=== PATIENT | female | born 1975 | race Caucasian/White ===

== ENCOUNTER 2020-05-15 15:18 | Inpatient (IN) | payer MEDICAID, OTHER ==
[~2020-05-15] VITALS: Ht 170.2 cm; Wt 124.7 kg
[~2020-05-15 15:18] MED LIST: BENZ100C PO; CLIN150C15 PO; FLUO60TA PO; FOLI0.4T5 PO; INSU100C4 SQ; INSU100I13 SQ; LISI-130 PO; MEDR150D3 IM; METF10007 PO; OXYC1TAB15 PO; PREG100C PO
[2020-05-15] MEDS ORDERED: cefTRIAXone IV Push 1 GM VIAL. IVP ONE (16:45)
--- NOTE | 2020-05-15 16:49 | PHYS DOC ---
Past Medical History Past Medical History: Asthma, Depression, Diabetes-Type II, Hypertension, Other Additional Past Medical Histor: NEUROPATHY Past Surgical History: , Other Additional Past Surgical Histo: ABSCESS REMOVALS, LEFT FOOT SURGERY W/ WOUND VAC Smoking Status: Former Smoker Alcohol Use: Rarely Additional Information: "I DRINK 3-4 TIMES A WEEK." Drug Use: None General Adult EDM: Chief Complaint: WOUND CHECK HPI: HPI: Patient is a 44 year old female with history of diabetes neuropathy anxiety depression presents emergency department for bilateral foot wounds. Patient was discharged from [facility] on Friday. She had I&D of the left foot wound at that time. Patient has had amputation of the second and third digit on the right foot in January. Plan was for IV of antibiotics at home. Patient has a PICC line in the left upper extremity. Patient reports they wanted her to go to rehab but she did not want ago. Patient reports they sent antibiotics to her house. She was unsure what to do with them. She did not go to wound care as instructed today. They were supposed to put a wound VAC on the wounds today. Patient denies fever chills nausea vomiting chest pain shortness of breath new numbness or weakness. Patient denies smoking drug use or alcohol use. Patient reports she is on Invanz 1 g every 24 hours as well as daptomycin. Review of Systems: Review of Systems: Review of Systems: Constitutional: Denies fever or chills Eyes: Denies redness or eye pain HENT: Denies nasal congestion or sore throat Respiratory: Denies cough or shortness of breath Cardiovascular: Denies chest pain or palpitations GI: denies abdominal pain and nausea, denies vomiting or diarrhea : Denies dysuria or hematuria Musculoskeletal: Denies back pain or joint pain Integument: Denies rash or skin lesions Neurologic: Denies headache, focal weakness or sensory changes Heart Score: C/O Chest Pain: No Allergies: Allergies: Allergies Coded Allergies Type Severity Reaction Last Updated Verified tioconazole Allergy Intermediate 04/19/15 No Physical Exam: PE: *GENERAL APPEARANCE: Awake and alert. Cooperative. No acute distress. Non toxic appearing. HEAD: Normocephalic. Atraumatic. EYES: EOM's grossly intact. Sclera anicteric. Conjunctiva clear ENT:. Airway patent. Mucous membranes moist. No trismus. Tolerating secretions. NECK: Supple. Trachea midline. HEART: Regular rate and rhythm. Radial pulses 2+. Good capillary refill. LUNGS: Respirations unlabored. Clear to auscultation bilaterally. No rales, rhonchi, wheezing or retractions. ABDOMEN: Soft. Non-tender. No guarding or rebound. No CVA tenderness. No palpable or pulsatile mass. EXTREMITIES: No acute deformities. No edema, erythema or calf tenderness. Left lower extremity: Large wound on the plantar aspect of the left foot that extends the lateral part of the foot. Mild erythema. No significant drainage. MTP amputation of the third fourth and fifth digit Right lower extremity: MTP amputation of the second and third digit. Wound over this area. Range of motion sensation normal in the bilateral lower extremities. No significant edema. Compartments are all soft. SKIN: Warm and dry. No rash. NEUROLOGICAL: Alert and oriented x3. No gross neurological deficits. Moves all 4 extremities spontaneously. PSYCHIATRIC: Normal mood. Current Patient Data: Vital Signs: Vital Signs Date Time Temp Pulse Resp B/P (MAP) Pulse Ox O2 Delivery O2 Flow Rate FiO2 05/15/20 15:30 98.4 101 24 190/82 (118) 98 Room Air 98.4 EKG: EKG: [] Radiology/Procedures: Radiology/Procedures: []PROCEDURE: FOOT BILAT 2V Left foot 2 views, right foot 2 views. HISTORY: Bilateral foot wounds Left foot 2 views were taken the left foot. There is evidence of amputations of portions of the first and second toes. There is no acute fracture or bony destructive process. There is soft tissue swelling. Right foot 2 views were taken of the right foot. There is been amputation of the second third toes. There is bony destruction of the distal second and third metatarsals. There is periosteal reaction which can be related to fracture or osteomyelitis with reaction. There is periosteal reaction along the first metatarsal as well. There is an old fracture at the head of the fourth metatarsal. Pattern is concerning for osteomyelitis is of the metatarsals. IMPRESSION: 1. Previous amputations left foot. 2. No acute fracture or bony destruction left foot. 3. Previous amputations right foot. 4. Periosteal reaction first, second and third metatarsals which can be seen with a chronic osteomyelitis, MRI may be of benefit. Electronically signed by: Wellington Gonzalez MD (05/15/2020 5:28 PM) [id number] DICTATED and SIGNED BY: WELLINGTON GONZALEZ MD DATE: 05/15/20 [id number] 0 Course & Med Decision Making: Course & Med Decision Making Medical decision making: This is a 44-year-old female presents emergency department for wounds on the bilateral feet. Patient just discharged from the hospital on Friday. She got sent home with antibiotics. She reports she has some at home but is not sure how to administer them. They offered her rehab but patient declined. Patient is very anxious. She now understands that she probably needs more help than she can give herself at home. She is willing to go to rehab facility for IV antibiotics. Patient follows with Dr. Casillas for infectious disease. She is on Invanz 1 g every 24 hours and daptomycin. Here in the emergency department patient appears anxious. Blood pressure is elevated. Mildly tachycardic. Afebrile. No leukocytosis. Hemoglobin 8.5. Electrolytes stable. CRP elevated. Patient given a dose of Invanz and daptomycin as she has not had any antibiotics since Friday. At this time based on patient's symptoms and findings will admit to the hospital for further observation and evaluation. Spoke with patient. Agreeable to admission. They are aware of all labs and imaging. All questions answered and patient stable at time of admission. Jennifer Disclaimer: Jennifer Disclaimer: This electronic medical record was generated, in whole or in part, using a voice recognition dictation system. I have spoken to the patient and/or caregivers. I have explained the patient's condition, diagnoses and treatment plan based on the information available to me at this time. I have answered the patient's and/or caregiver's questions and addressed my concerns. The patient and/or caregivers has a good understanding of the patient's diagnosis, condition and treatment plan as can be expected at this point. The patient has been stabilized within the capability of the emergency department. The patient will be transported for further care and management or will be moved to an observation or inpatient service. I have communicated with the staff or medical practitioner taking over this patient's care. Departure Departure Impression: Primary Impression: Wound of left foot Additional Impression: Wound of right foot Disposition: ADMITTED INPT THIS HOSP Admitting Physician: SETH (Spoke with Dr. MORIN AT 1830. Accepts admission. Will see patient. Agrees with plan. Patient stable at time of admission.) Condition: STABLE Referrals: NO PCP (PCP) PATTIE FULTON DO May 15, 2020 16:49
[2020-05-15 17:21] LABS: BASO # 0.1 x10^3/uL (0.0-0.2); BASO % 1 % (0-3); EOS % 0 % (0-3); HEMATOCRIT 26.2 % (36.0-47.0); HEMOGLOBIN 8.5 g/dL (12.0-15.5); LYMPH # 1.7 x10^3/uL (1.0-4.8); LYMPH % 20 % (24-48); MEAN CORPUSCULAR HEMOGLOBIN 27 pg (25-35); MEAN CORPUSCULAR HGB CONC 33 g/dL (31-37); MEAN CORPUSCULAR VOLUME 82 fL (79-100); MONO # 0.6 x10^3/uL (0.0-1.1); MONO % 7 % (0-9); NEUT # 6.1 x10^3/uL (1.8-7.7); NEUT % 71 % (31-73); PLATELET COUNT 512 x10^3/uL (140-400); RED BLOOD COUNT 3.21 x10^6/uL (3.50-5.40); RED CELL DISTRIBUTION WIDTH 18.4 % (11.5-14.5); WHITE BLOOD COUNT 8.6 x10^3/uL (4.0-11.0)
--- NOTE | 2020-05-15 17:30 | RAD ---
Left foot 2 views, right foot 2 views. HISTORY: Bilateral foot wounds Left foot 2 views were taken the left foot. There is evidence of amputations of portions of the first and secon d toes. There is no acute fracture or bony destructive process. There is soft tissue swelling. Right foot 2 views were taken of the right foot. There is been amputation of the second third toes. There is bon y destruction of the distal second and third metatarsals. There is periosteal reaction which can be r elated to fracture or osteomyelitis with reaction. There is periosteal reaction along the first metat arsal as well. There is an old fracture at the head of the fourth metatarsal. Pattern is concerning f or osteomyelitis is of the metatarsals. IMPRESSION: 1. Previous amputations left foot. 2. No acute fracture or bony destruction left foot. 3. Previous amputations right foot. 4. Periosteal reaction first, second and third metatarsals which can be seen with a chronic osteomyel itis, MRI may be of benefit. Electronically signed by: Wellington Gonzalez MD (05/15/2020 5:28 PM) [id number]
[2020-05-15 17:42] LABS: CALCIUM 8.3 mg/dL (8.5-10.1); CREATININE 0.9 mg/dL (0.6-1.0); POTASSIUM 3.8 mmol/L (3.5-5.1)
[2020-05-15] MEDS ORDERED: MORPHINE SULFATE 2 MG/ML VIAL. IV ONE (17:45)
[2020-05-15] MEDS ORDERED: MORPHINE SULFATE 4 MG/ML VIAL. ONE (17:46)
[2020-05-15 17:48] LABS: ALBUMIN 2.4 g/dL (3.4-5.0); ALBUMIN/GLOBULIN RATIO 0.5 (1.0-1.7); C-REACTIVE PROTEIN 12.1 mg/L (0-3.3); TOTAL BILIRUBIN 0.2 mg/dL (0.2-1.0); TOTAL PROTEIN 7.4 g/dL (6.4-8.2)
[2020-05-15] MEDS ORDERED: ERTAPENEM 1GM IVPB(GENERIC) NS 50 ML IV ONE (18:00)
[2020-05-15] MEDS ORDERED: ONDANSETRON PF 4 MG/2 ML VIAL. IV PRN (18:45)
[2020-05-15] MEDS ORDERED: DAPTOmycin (GENERIC) IVPB 530 MG in IV NORMAL SALINE 50ML 50 ML IV ONE (19:30)
[2020-05-15 19:55] VITALS: BP 155/72
[2020-05-15] MEDS: MORPHINE SULFATE 2 MG/ML VIAL. IV PRN (22:53)
[2020-05-15 23:00] VITALS: BP 162/87
[2020-05-15] MEDS: FLUoxetine HCL 20 MG CAPSULE PO SCH (23:56)
--- NOTE | 2020-05-16 02:16 | NUR ---
During pt assessment, pt stated that she has had thoughts of suicide. Pt stated that she has been going through a lot in life and suffers from major depression and Bipolar disorder. Pt states that she has a plan of how she would do it, but states that she has no immediate intent on carrying out the plan. I advised Dr. Teran who denied the need for a !:1 at this time. Contacted Day Nurse Ceramic Design Engineer and advised her what Parul said. This RN asked Day if staff should rotate out every 30 min, and she stated no since Parul saw no need. Will continue to monitor and provide ever 15 minute checks per suicide protocol. MPRN
[2020-05-16] MEDS: MORPHINE SULFATE 2 MG/ML VIAL. IV PRN ×4 (02:29→16:07)
[2020-05-16 03:00] VITALS: BP 141/90
[2020-05-16 07:00] VITALS: BP 126/81
[2020-05-16] MEDS: FLUoxetine HCL 20 MG CAPSULE PO SCH (07:49)
--- NOTE | 2020-05-16 07:53 | PDOC1 ---
History and Physical Date of Admission Date of Admission DATE: 05/16/20 TIME: 07:51 Identification/Chief Complaint Chief Complaint recently discharged from [facility] on daptomycin and Invanz and the patient comes in here she wants to go to rehab. History of Present Illness History of Present Illness 44 yr old female recently discharged from [facility] on daptomycin and Invanz and the patient comes in here that she says she just cannot do it at home and she wants to go to rehab. presented emergency department for bilateral foot wounds. discharged from [facility] on Friday. She had I&D of the left foot wound and amputation of the second and third digit on the right foot in January.2020 has a PICC line in the left upper extremity. reports they sent antibiotics to her house. She did not go to wound care as instructed They were supposed to put a wound VAC on the wounds Patient denies fever chills nausea vomiting chest pain shortness of breath new numbness or weakness. Patient denies smoking drug use or alcohol use Past Medical History Past Medical History Past Medical History Past Medical History: Asthma, Depression, Diabetes-Type II, Hypertension, Other Additional Past Medical Histor: NEUROPATHY Past Surgical History: , Other Additional Past Surgical Histo: ABSCESS REMOVALS, LEFT FOOT SURGERY W/ WOUND VAC Smoking Status: Former Smoker Alcohol Use: Rarely Additional Information: "I DRINK 3-4 TIMES A WEEK." Drug Use: None FHX OBESITY Psych: Anxiety, Bipolar, Depression Endocrine: Diabetes Family History Family History: Diabetes, High Cholestrol, Hypertension Social History Smoke: <1 pack per day ALCOHOL: none Drugs: None Current Problem List Problem List Problems Medical Problems: (1) Wound of left foot Status: Acute (2) Wound of right foot Status: Acute (3) Wound, open, foot Status: Acute Current Medications Current Medications Current Medications Ceftriaxone Sodium (Rocephin) 1 gm 1X ONCE IVP ; Start 05/15/20 at 16:45; Stop 05/15/20 at 17:50; Status DC Morphine Sulfate (Morphine Sulfate) 4 mg 1X ONCE IV Last administered on 05/15/20at 18:00; Start 05/15/20 at 17:45; Stop 05/15/20 at 17:46; Status DC Morphine Sulfate (Morphine Sulfate) 4 mg STK-MED ONCE .ROUTE ; Start 05/15/20 at 17:46; Stop 05/15/20 at 17:47; Status DC Ertapenem 50 ml @ 100 mls/hr 1X ONCE IV ; Start 05/15/20 at 18:00; Stop 05/15/20 at 18:29; Status DC Daptomycin 530 mg/ Sodium Chloride 50 ml @ 100 mls/hr 1X ONCE IV Last admini stered on 05/15/20at 19:41; Start 05/15/20 at 19:30; Stop 05/15/20 at 19:59; Status DC Ondansetron HCl (Zofran) 4 mg PRN Q8HRS PRN IV NAUSEA/VOMITING; Start 05/15/20 at 18:45; Stop 05/16/20 at 18:44 Morphine Sulfate (Morphine Sulfate) 2 mg PRN Q2HR PRN IV PAIN Last administered on 05/16/20at 07:49; Start 05/15/20 at 18:45; Stop 05/16/20 at 18:44 Lorazepam (Ativan Inj) 1 mg PRN Q4HRS PRN IVP ANXIETY / AGITATION Last administered on 05/16/20at 04:38; Start 05/15/20 at 23:15 Non-Formulary Medication (Fluoxetine Hcl ) 60 mg DAILY PO ; Start 05/16/20 at 09:00; Stop 05/15/20 at 23:17; Status DC Fluoxetine HCl (PROzac) 60 mg DAILY PO Last administered on 05/16/20at 07:49; Start 05/16/20 at 00:00 Pharmacy Consult (C.diff Med Screen By Rx) 1 each 1X ONCE [facility] ; Start 05/16/20 at 09:00; Stop 05/16/20 at 09:01 Active Scripts Active Tessalon Perle (Benzonatate) 100 Mg Capsule 1 Cap PO TID Clindamycin Hcl 150 Mg Capsule 3 Cap PO TID Lyrica (Pregabalin) 100 Mg Capsule 1 Cap PO BID Percocet 5-325 Mg Tablet (Oxycodone/Acetaminophen) 1 Each Tablet 1 Tab PO PRN Q6HRS PRN Reported Novolog (Insulin Aspart) 100 Unit/1 Ml Cartridge 100 Unit SQ TID Lantus Solostar (Insulin Glargine,Hum.rec.anlog) 100 Unit/1 Ml Insuln.pen 30 Unit SQ HS Metformin Hcl 1,000 Mg Tablet 1 Tab PO DAILY Folic Acid 0.4 Mg Tablet 0.4 Mg PO DAILY Fluoxetine Hcl 60 Mg Tablet 60 Mg PO DAILY Lisinopril 40 Mg Tablet 1 Tab PO DAILY Depo-Provera (Medroxyprogesterone Acetate) 150 Mg/1 Ml Disp.syrin 1 Ml IM Q4WK Allergies Allergies: Coded Allergies: bupropion (Verified Allergy, Severe, 05/15/20) Seizures tioconazole (Unverified Allergy, Intermediate, 04/19/15) ROS Review of System Review of Systems: Constitutional: Denies fever or chills Eyes: Denies redness or eye pain HENT: Denies nasal congestion or sore throat Respiratory: Denies cough or shortness of breath Cardiovascular: Denies chest pain or palpitations GI: denies abdominal pain and nausea, denies vomiting or diarrhea : Denies dysuria or hematuria Musculoskeletal: Denies back pain pos joint pain Integument: Denies rash or skin lesions Neurologic: Denies headache, focal weakness or sensory changes 14 pt ros otherwise neg General: No: Chills, Night Sweats, Fatigue, Malaise, Appetite, Other ALLERGY AND IMMUNOLOGY: No: Hives, Insect Bite Sensitivity, Itchy/Watery Eyes, Nasal Congestion, Post Nasal Drip, Seasonal Allergies, Other Hematological and Lymphatic: No: Bleeding Problems, Blood Clots, Blood Transfusions, Brusing, Night Sweats, Pallor, Swollen Lymph Nodes, Other Respiratory: No: Cough, Hemoptysis, Orthopnea, Pleuritic Pain, Shortness of breath, SOB with excertion, Sputum Changes, Stridor, Tachypnea, Wheezing, Other Cardiovascular: No Chest Pain, No Palpitations, No Orthopnea, No Paroxysmal Noc. Dyspnea, No Edema, No Lt Headedness, No Other Musculoskeletal: Yes Gait Disturbance, Yes Joint Stiffness Neurological: Yes Gait Disturbance Skin: Yes Skin Lesion Changes Physical Exam Physical Exam HEAD: Normocephalic. Atraumatic. EYES: EOM's grossly intact. Sclera anicteric. Conjunctiva clear ENT:. Airway patent. Mucous membranes moist. No trismus. Tolerating secretions. NECK: Supple. Trachea midline. HEART: Regular rate and rhythm. Radial pulses 2+. Good capillary refill. LUNGS: Respirations unlabored. Clear to auscultation bilaterally. No rales, rhonchi, wheezing or retractions. ABDOMEN: Soft. Non-tender. No guarding or rebound. No CVA tenderness. No palpable or pulsatile mass. EXTREMITIES: No acute deformities. No edema, erythema or calf tenderness. Left lower extremity: Large wound on the plantar aspect of the left foot that e xtends the lateral part of the foot. Mild erythema. No significant drainage. MTP amputation of the third fourth and fifth digit Right lower extremity: MTP amputation of the second and third digit. Wound over this area. Range of motion sensation normal in the bilateral lower extremities. No significant edema. Compartments are all soft. SKIN: Warm and dry. No rash. NEUROLOGICAL: Alert and oriented x3. No gross neurological deficits. Moves all 4 extremities PSYCHIATRIC: Normal mood. General: Alert, Oriented X3, Cooperative, No acute distress HEENT: Atraumatic, PERRLA, EOMI, Mucous membr. moist/pink Lungs: Clear to auscultation, Normal air movement Heart: S1S2, RRR, no thrills Breasts: Not examined Abdomen: Normal bowel sounds, Soft, No tenderness Rectal Exam: not examined PELVIC: Examination not indicated Extremities: No clubbing, No cyanosis Neuro: Normal speech, Cranial nerves 3-12 NL Psych/Mental Status: Mental status NL, Mood NL Vitals Vitals Vital Signs Date Time Temp Pulse Resp B/P (MAP) Pulse Ox O2 Delivery O2 Flow Rate FiO2 05/16/20 07:49 Room Air 05/16/20 03:00 98.4 100 18 141/90 (107) 98 98.4 Labs Labs Laboratory Tests Test 05/15/20 17:08 05/15/20 21:00 05/16/20 07:03 White Blood Count 8.6 x10^3/uL (4.0-11.0) Red Blood Count 3.21 x10^6/uL (3.50-5.40) Hemoglobin 8.5 g/dL (12.0-15.5) Hematocrit 26.2 % (36.0-47.0) Mean Corpuscular Volume 82 fL (79-100) Mean Corpuscular Hemoglobin 27 pg (25-35) Mean Corpuscular Hemoglobin Concent 33 g/dL (31-37) Red Cell Distribution Width 18.4 % (11.5-14.5) Platelet Count 512 x10^3/uL (140-400) Neutrophils (%) (Auto) 71 % (31-73) Lymphocytes (%) (Auto) 20 % (24-48) Monocytes (%) (Auto) 7 % (0-9) Eosinophils (%) (Auto) 0 % (0-3) Basophils (%) (Auto) 1 % (0-3) Neutrophils # (Auto) 6.1 x10^3/uL (1.8-7.7) Lymphocytes # (Auto) 1.7 x10^3/uL (1.0-4.8) Monocytes # (Auto) 0.6 x10^3/uL (0.0-1.1) Eosinophils # (Auto) 0.0 x10^3/uL (0.0-0.7) Basophils # (Auto) 0.1 x10^3/uL (0.0-0.2) Sodium Level 138 mmol/L (136-145) Potassium Level 3.8 mmol/L (3.5-5.1) Chloride Level 102 mmol/L (98-107) Carbon Dioxide Level 25 mmol/L (21-32) Anion Gap 11 (6-14) Blood Urea Nitrogen 5 mg/dL (7-20) Creatinine 0.9 mg/dL (0.6-1.0) Estimated GFR (Cockcroft-Gault) 68.0 BUN/Creatinine Ratio 6 (6-20) Glucose Level 166 mg/dL (70-99) Calcium Level 8.3 mg/dL (8.5-10.1) Total Bilirubin 0.2 mg/dL (0.2-1.0) Aspartate Amino Transf (AST/SGOT) 26 U/L (15-37) Alanine Aminotransferase (ALT/SGPT) 24 U/L (14-59) Alkaline Phosphatase 108 U/L (46-116) C-Reactive Protein, Quantitative 12.1 mg/L (0-3.3) Total Protein 7.4 g/dL (6.4-8.2) Albumin 2.4 g/dL (3.4-5.0) Albumin/Globulin Ratio 0.5 (1.0-1.7) Glucose (Fingerstick) 169 mg/dL (70-99) 148 mg/dL (70-99) Laboratory Tests Test 05/15/20 17:08 05/15/20 21:00 3/9/21 07:03 White Blood Count 8.6 x10^3/uL (4.0-11.0) Red Blood Count 3.21 x10^6/uL (3.50-5.40) Hemoglobin 8.5 g/dL (12.0-15.5) Hematocrit 26.2 % (36.0-47.0) Mean Corpuscular Volume 82 fL (79-100) Mean Corpuscular Hemoglobin 27 pg (25-35) Mean Corpuscular Hemoglobin Concent 33 g/dL (31-37) Red Cell Distribution Width 18.4 % (11.5-14.5) Platelet Count 512 x10^3/uL (140-400) Neutrophils (%) (Auto) 71 % (31-73) Lymphocytes (%) (Auto) 20 % (24-48) Monocytes (%) (Auto) 7 % (0-9) Eosinophils (%) (Auto) 0 % (0-3) Basophils (%) (Auto) 1 % (0-3) Neutrophils # (Auto) 6.1 x10^3/uL (1.8-7.7) Lymphocytes # (Auto) 1.7 x10^3/uL (1.0-4.8) Monocytes # (Auto) 0.6 x10^3/uL (0.0-1.1) Eosinophils # (Auto) 0.0 x10^3/uL (0.0-0.7) Basophils # (Auto) 0.1 x10^3/uL (0.0-0.2) Sodium Level 138 mmol/L (136-145) Potassium Level 3.8 mmol/L (3.5-5.1) Chloride Level 102 mmol/L (98-107) Carbon Dioxide Level 25 mmol/L (21-32) Anion Gap 11 (6-14) Blood Urea Nitrogen 5 mg/dL (7-20) Creatinine 0.9 mg/dL (0.6-1.0) Estimated GFR (Cockcroft-Gault) 68.0 BUN/Creatinine Ratio 6 (6-20) Glucose Level 166 mg/dL (70-99) Calcium Level 8.3 mg/dL (8.5-10.1) Total Bilirubin 0.2 mg/dL (0.2-1.0) Aspartate Amino Transf (AST/SGOT) 26 U/L (15-37) Alanine Aminotransferase (ALT/SGPT) 24 U/L (14-59) Alkaline Phosphatase 108 U/L (46-116) C-Reactive Protein, Quantitative 12.1 mg/L (0-3.3) Total Protein 7.4 g/dL (6.4-8.2) Albumin 2.4 g/dL (3.4-5.0) Albumin/Globulin Ratio 0.5 (1.0-1.7) Glucose (Fingerstick) 169 mg/dL (70-99) 148 mg/dL (70-99) Images Images Left foot 2 views, right foot 2 views. HISTORY: Bilateral foot wounds Left foot 2 views were taken the left foot. There is evidence of amputations of portions of the first and second toes. There is no acute fracture or bony destructive process. There is soft tissue swelling. Right foot 2 views were taken of the right foot. There is been amputation of the second third toes. There is bony destruction of the distal second and third metatarsals. There is periosteal reaction which can be related to fracture or osteomyelitis with reaction. There is periosteal reaction along the first metatarsal as well. There is an old fracture at the head of the fourth metatarsal. Pattern is concerning for osteomyelitis is of the metatarsals. IMPRESSION: 1. Previous amputations left foot. 2. No acute fracture or bony destruction left foot. 3. Previous amputations right foot. 4. Periosteal reaction first, second and third metatarsals which can be seen with a chronic osteomyelitis, MRI may be of benefit. Electronically signed by: Josefa Iyer MD (05/15/2020 5:28 PM) [id number] DICTATED and SIGNED BY: JOSEFA IYER MD DATE: 05/15/20 [id number] VTE Prophylaxis Ordered VTE Prophylaxis Devices: No VTE Pharmacological Prophylaxi: Yes Assessment/Plan Assessment/Plan Impression: Wound of left foot MORBID OBESITY Wound of right foot asthma Diabetes hypertension FAILED OUT PATIENT TREATMENT ADMITTED id consult iv merem wound care needs wound vac rehab, snf placement D/W DR HUGGINS Justifications for Admission Other Justification ROBBI CISNEROS MD May 16, 2020 07:53
--- NOTE | 2020-05-16 08:38 | PDOC ---
Infectious Disease Note Vital Sign Vital Signs Vital Signs Date Time Temp Pulse Resp B/P (MAP) Pulse Ox O2 Delivery O2 Flow Rate FiO2 05/16/20 07:49 Room Air 05/16/20 07:00 98.6 105 18 126/81 (96) 99 98.6 Labs Lab Laboratory Tests Test 05/15/20 17:08 05/15/20 21:00 05/16/20 07:03 White Blood Count 8.6 x10^3/uL (4.0-11.0) Red Blood Count 3.21 x10^6/uL (3.50-5.40) Hemoglobin 8.5 g/dL (12.0-15.5) Hematocrit 26.2 % (36.0-47.0) Mean Corpuscular Volume 82 fL (79-100) Mean Corpuscular Hemoglobin 27 pg (25-35) Mean Corpuscular Hemoglobin Concent 33 g/dL (31-37) Red Cell Distribution Width 18.4 % (11.5-14.5) Platelet Count 512 x10^3/uL (140-400) Neutrophils (%) (Auto) 71 % (31-73) Lymphocytes (%) (Auto) 20 % (24-48) Monocytes (%) (Auto) 7 % (0-9) Eosinophils (%) (Auto) 0 % (0-3) Basophils (%) (Auto) 1 % (0-3) Neutrophils # (Auto) 6.1 x10^3/uL (1.8-7.7) Lymphocytes # (Auto) 1.7 x10^3/uL (1.0-4.8) Monocytes # (Auto) 0.6 x10^3/uL (0.0-1.1) Eosinophils # (Auto) 0.0 x10^3/uL (0.0-0.7) Basophils # (Auto) 0.1 x10^3/uL (0.0-0.2) Sodium Level 138 mmol/L (136-145) Potassium Level 3.8 mmol/L (3.5-5.1) Chloride Level 102 mmol/L (98-107) Carbon Dioxide Level 25 mmol/L (21-32) Anion Gap 11 (6-14) Blood Urea Nitrogen 5 mg/dL (7-20) Creatinine 0.9 mg/dL (0.6-1.0) Estimated GFR (Cockcroft-Gault) 68.0 BUN/Creatinine Ratio 6 (6-20) Glucose Level 166 mg/dL (70-99) Calcium Level 8.3 mg/dL (8.5-10.1) Total Bilirubin 0.2 mg/dL (0.2-1.0) Aspartate Amino Transf (AST/SGOT) 26 U/L (15-37) Alanine Aminotransferase (ALT/SGPT) 24 U/L (14-59) Alkaline Phosphatase 108 U/L (46-116) C-Reactive Protein, Quantitative 12.1 mg/L (0-3.3) Total Protein 7.4 g/dL (6.4-8.2) Albumin 2.4 g/dL (3.4-5.0) Albumin/Globulin Ratio 0.5 (1.0-1.7) Glucose (Fingerstick) 169 mg/dL (70-99) 148 mg/dL (70-99) Objective Assessment Patient seen consult dictated Plan Plan of Care / AMY HUGGINS MD May 16, 2020 08:38
[2020-05-16] MEDS ORDERED: FLUOXETINE HCL 60 MG PO SCH (09:00)
[2020-05-16] MEDS ORDERED: C.DIFF MED SCREEN BY RX. MC ONE (09:00)
--- NOTE | 2020-05-16 09:05 | CONS ---
DATE OF CONSULTATION: 05/16/2020 REQUESTING PHYSICIAN: Dr. Lezama. REASON FOR CONSULTATION: Diabetic foot infection. HISTORY OF PRESENT ILLNESS: This is a 44-year-old female who is very well known to us. The patient was recently discharged from [facility] on daptomycin and Invanz and the patient comes in here that she says she just cannot do it at home and she wants to go to rehab. The patient denies any fever. Denies any nausea, vomiting, diarrhea, chest pain, shortness of breath, abdominal pain, urinary symptoms or bowel symptoms. PAST MEDICAL HISTORY: Positive for diabetes mellitus with poor control, hypertension and asthma. The patient had left foot plantar ulcer, necrotic with abscess. The patient had recent I and D done by Vascular Surgery. There was no osteomyelitis per MRI. The patient has a right second toe amputation, that site is healing well. Has a PICC line. SOCIAL HISTORY: Negative for smoking, alcohol use or drug use. ALLERGIES: LISTED ALLERGIC TO BUPROPION AND TIOCONAZOLE . CURRENT MEDICATIONS: Reviewed. REVIEW OF SYSTEMS: As per HPI, all other systems reviewed are negative. PHYSICAL EXAMINATION: GENERAL: Alert, oriented female, not in distress. VITAL SIGNS: Stable, afebrile. HEENT: NAD. NECK: Supple, no JVP, no lymphadenopathy. LUNGS: Clear. HEART: S1, S2 regular. ABDOMEN: Benign. EXTREMITIES: No edema or cyanosis. SKIN: Unremarkable except necrotic wound on the left plantar surface with Charcot's deformity and the right foot has an amputation site wound, which is actually healing nicely. Rest of skin exam is unremarkable. Dorsalis pedis is palpable. NEUROLOGIC: The patient is alert, awake and appropriate. No focal neurologic deficit. PICC line site is unremarkable. LABORATORY DATA: White count is normal. BUN and creatinine is normal. Foot x-ray reviewed. IMPRESSION: 1. Left foot necrotic plantar ulcer with abscess, status post recent I and D at [facility]. At that time, MRI was negative for osteomyelitis. 2. Right toe amputation site wound, which is healing well. 3. Diabetes with poor control. 4. Diabetic neuropathy. 5. Charcot's disease in the foot. 6. History of asthma. RECOMMENDATIONS: Would use daptomycin and meropenem. The patient was supposed to be on daptomycin and Invanz at home. The patient actually can be discharged to [facility] a [facility] facility and can be discharged. She does not need another MRI and/or anything else other than she needs IV antibiotics and she needs to give time to see the patient was told by Vascular Surgery that she may end up needing a BKA on the left one, but she wants to try to save it, needs to be ready to discharge and have a wound care at the [facility]. Thank you very much, Dr. Lezama, for giving me the opportunity to participate in this patient's care. AMY HUGGINS MD DR: URIEL/poncho JOB#: [id number] / [id number]
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
[2020-05-16] MEDS: PREGABALIN 50 MG CAPSULE PO SCH ×2 (12:51→21:05)
[2020-05-16] MEDS: oxyCODONE/APAP 5/325 1 TAB TABLET PO PRN ×2 (12:51→20:09)
[2020-05-16] MEDS: LISINOPRIL 20 MG TABLET PO SCH (12:51)
[2020-05-16] MEDS: FOLIC ACID 1 MG TABLET. PO SCH (12:51)
[2020-05-16] MEDS ORDERED: BENZONATATE 100 MG CAPSULE. PO SCH (14:00)
[2020-05-16 15:00] VITALS: BP 151/88
--- NOTE | 2020-05-16 15:49 | PDOC2 ---
Chief Complaint: Chief Complaint: Bilateral diabetic foot ulcers Problems: (1) Wound of right foot (2) Wound of left foot (3) TYPE 2 DIABETES MELLITUS WITH FOOT ULCER Vital Signs: Vital Signs: Vital Signs Date Time Temp Pulse Resp B/P (MAP) Pulse Ox O2 Delivery O2 Flow Rate FiO2 05/15/20 15:30 98.4 101 24 190/82 (118) 98 Room Air 98.4 Vital Signs Date Time Temp Pulse Resp B/P (MAP) Pulse Ox O2 Delivery O2 Flow Rate FiO2 05/16/20 12:51 Room Air 05/16/20 12:51 104 150/70 05/16/20 07:00 98.6 18 99 98.6 Allergies: Allergies: Allergies Coded Allergies Type Severity Reaction Last Updated Verified bupropion Allergy Severe 05/15/20 Yes tioconazole Allergy Intermediate 04/19/15 No Medications: Home Meds Active Scripts Benzonatate (TESSALON PERLE) 100 Mg Capsule, 1 CAP PO TID, #30 CAP Prov:MUTRAMEZABARRY SAMPLE WASHER 04/23/16 Clindamycin Hcl (CLINDAMYCIN HCL) 150 Mg Capsule, 3 CAP PO TID, #90 CAP Prov:MUTRAMEZABARRY SAMPLE WASHER 04/23/16 Pregabalin (LYRICA) 100 Mg Capsule, 1 CAP PO BID, #60 CAP 2 Refills Prov:BARRY DENTON APRN 04/23/16 Oxycodone/Apap 5-325 (PERCOCET 5-325 MG TABLET ) 1 Each Tablet, 1 TAB PO PRN Q6HRS PRN for PAIN, #20 TAB 0 Refills Prov:ARMEN HERNANDEZ 10/02/15 Reported Medications Insulin Aspart (NOVOLOG) 100 Unit/1 Ml Cartridge, 100 UNIT SQ TID, EACH 04/19/15 Insulin Glargine,Hum.rec.anlog (LANTUS SOLOSTAR) 100 Unit/1 Ml Insuln.pen, 30 UNIT SQ HS, #15 ML 3 Refills 04/19/15 Metformin Hcl (METFORMIN HCL) 1,000 Mg Tablet, 1 TAB PO DAILY, #60 TAB 5 Refills 04/19/15 Folic Acid (FOLIC ACID) 0.4 Mg Tablet, 0.4 MG PO DAILY, TAB 04/19/15 Fluoxetine Hcl (FLUOXETINE HCL) 60 Mg Tablet, 60 MG PO DAILY, TAB 04/19/15 Lisinopril (LISINOPRIL) 40 Mg Tablet, 1 TAB PO DAILY, #30 TAB 5 Refills 04/19/15 Medroxyprogesterone Acetate (DEPO-PROVERA) 150 Mg/1 Ml Disp.syrin, 1 ML IM Q4WK, #1 SYR 4 Refills 04/19/15 Date of Onset 44 yo diabetic female admitted through ED with bilateral diabetic foot ulcers. She was recently discharged from [facility] after bilateral diabetic foot ulcer debridement. Her planned support system to continue independence at home fell through and she is unable to manage dressings and care of these wounds on her own. She has had poorly controlled diabetes since the age of 32. She has had several toe amputations on her feet. The latest was the second and third toe on the right foot in January 2020. Surgical Date January 2020 Surgical History Serial toe amputations PSH She is single and lives at home alone. She used to smoke up to 3 ci garettes/month. She is now no longer a smoker. She does not drink alcohol. Physical Exam - Wound #1 Wound Exam Location of Modifier: Right Body Site: Foot Associated Signs/Symptoms: Drainage Drainage Amount: Moderate Drainage Description: Serous Odor: None/Absent Surrounding Tissue Appearance: pink Wound Description: muscle Grade Kauffman: 2 Surgical Debridement #1 Start Time: He is in 2% topical lidocaine as an anesthetic I sharply debrided slough and necrotic subcutaneous tissue using a curette. There is no bleeding. Physical Exam - Wound #2 Wound Exam Location of Modifier: Left Body Site: Foot Drainage Amount: Minimal Drainage Description: Serous Odor: None/Absent Surrounding Tissue Appearance: pink Wound Description: muscle Grade Kauffman: 2 A/P Bilateral foot ulcers in a patient with a history of poor diabetic control and of toe amputations. She is at moderate to high risk of further limb loss. Aggressive wound management is appropriate to starting with negative pressure wound therapy with vera flow. She is without support at home to help her manage and dressed these wounds. I think it is appropriate to have rehab as her post discharge goals. Infectious disease is managing her antibiotics. She also has lab results consistent with protein malnutrition. I recommend a dietary consult. Thank you for inviting wound care to participate in this patient's care. Problems: (1) TYPE 2 DIABETES MELLITUS WITH FOOT ULCER (2) Wound of left foot (3) Wound of right foot (4) SEQUELAE OF PROTEIN-CALORIE MALNUTRITION HECTOR AUGUSTIN MD May 16, 2020 15:49
[2020-05-16] MEDS: MEROPENEM 500 MG in IV NORMAL SALINE 50ML 50 ML IV SCH ×2 (15:58→22:35)
--- NOTE | 2020-05-16 16:23 | NUR ---
Wound/Ostomy Care Wound Type/Assessment: Patient seen per wound care consult. see wound assessment. Pt has DFUs to left lateral foot and right 2nd/3rd toes which were amputated in January 2020 per patient. Pt has been at [facility] and is familiar with Dr. Casillas. Wounds cleansed, assessed, measured, and pictured. Dr. Pompa consulted and at bedside. Pt stated current treatment to these wounds has been wound vac therapy. Treatment Recommendations/Plan: Recommendations for wound vac to both left and right foot wounds. Dr. Pompa performed a surgical bedside debridement to the right foot with written and verbal consent. s/p debridement picture and measurements taken. skin prepped and vac placed to right foot wound and veraflo vac placed to left foot wound. A good seal maintained on both vacs. the left foot veraflo vac settings are 125mmHg intermittent with 10mL for dwell time of 5 minutes every 4 hours and the right foot vac is 125mmHg continuous. Education provided: Pt educated on dressing changes, vac therapy and PU prevention. Offloading surface/device: pt is able to self turn and to limit pressure to wounds as much as possible. Recommended Referrals/Tests: Pt is following up with us in the wound clinic after discharge. Discharge Recommendations for dressings: Continue current treatment plan. No other wounds noted. Wound care will follow up with patient on 05/19/20. Bed lowered and call light in reach.
[2020-05-16] MEDS: DAPTOmycin (GENERIC) IVPB 540 MG in IV NORMAL SALINE 50ML 50 ML IV SCH (16:45)
[2020-05-16 19:00] VITALS: BP 134/79
[2020-05-16] MEDS ORDERED: BENZONATATE 100 MG CAPSULE. PO PRN (20:00)
[2020-05-16] MEDS ORDERED: INSULIN GLARGINE SYRINGE. SQ SCH (21:00)
[2020-05-16] MEDS: LACTOBACILLUS RHAMNOSUS GG 1 CAPSULE. PO SCH (21:05)
[2020-05-16] MEDS: INSULIN GLARGINE SYRINGE. SQ SCH (21:06)
[2020-05-16 23:00] VITALS: BP 128/80
[2020-05-17 03:00] VITALS: BP 137/67
[2020-05-17] MEDS: oxyCODONE/APAP 5/325 1 TAB TABLET PO PRN ×4 (04:49→21:16)
[2020-05-17] MEDS: MEROPENEM 500 MG in IV NORMAL SALINE 50ML 50 ML IV SCH ×3 (06:09→20:46)
[2020-05-17 07:00] VITALS: BP 145/78
[2020-05-17] MEDS: LACTOBACILLUS RHAMNOSUS GG 1 CAPSULE. PO SCH ×2 (08:25→20:46)
[2020-05-17] MEDS: LISINOPRIL 20 MG TABLET PO SCH (08:26)
[2020-05-17] MEDS: FLUoxetine HCL 20 MG CAPSULE PO SCH (08:26)
[2020-05-17] MEDS: PREGABALIN 50 MG CAPSULE PO SCH ×2 (08:27→20:46)
[2020-05-17] MEDS: FOLIC ACID 1 MG TABLET. PO SCH (08:27)
[2020-05-17] MEDS: INSULIN LISPRO 300 UNITS/3 ML VIAL. SQ SCH ×3 (08:31→17:20)
--- NOTE | 2020-05-17 08:35 | PDOC ---
PROGRESS NOTES Date of Service: DATE: 05/17/20 TIME: 08:35 Chief Complaint Chief Complaint DICTATED and SIGNED BY: JOSEFA IYER MD DATE: 05/15/20 [id number] VTE Prophylaxis Ordered VTE Prophylaxis Devices: No VTE Pharmacological Prophylaxi: Yes Assessment/Plan Assessment/Plan Impression: Wound of left foot MORBID OBESITY Wound of right foot asthma Diabetes hypertension FAILED OUT PATIENT TREATMENT ADMITTED id consult iv georgim wound care needs wound vac rehab, snf placement D/W DR HUGGINS Justifications for Admission Justifications for Admission Other Justification History of Present Illness History of Present Illness Identification/Chief Complaint Chief Complaint recently discharged from [facility] on daptomycin and Invanz and the patient comes in here she wants to go to rehab. History of Present Illness History of Present Illness 44 yr old female recently discharged from [facility] on daptomycin and Invanz and the patient comes in here that she says she just cannot do it at home and she wants to go to rehab. presented emergency department for bilateral foot wounds. discharged from [facility] on Friday. She had I&D of the left foot wound and amputation of the second and third digit on the right foot in January.2020 has a PICC line in the left upper extremity. reports they sent antibiotics to her house. She did not go to wound care as instructed They were supposed to put a wound VAC on the wounds Patient denies fever chills nausea vomiting chest pain shortness of breath new numbness or weakness. Patient denies smoking drug use or alcohol use Past Medical History Past Medical History Past Medical History Past Medical History: Asthma, Depression, Diabetes-Type II, Hypertension, Other Additional Past Medical Histor: NEUROPATHY Past Surgical History: , Other Additional Past Surgical Histo: ABSCESS REMOVALS, LEFT FOOT SURGERY W/ WOUND VAC Smoking Status: Former Smoker Alcohol Use: Rarely Additional Information: "I DRINK 3-4 TIMES A WEEK." Drug Use: None FHX OBESITY Psych: Anxiety, Bipolar, Depression Endocrine: Diabetes Family History Family History: Diabetes, High Cholestrol, Hypertension Social History Smoke: <1 pack per day ALCOHOL: none Drugs: None Current Problem List Problem List Problems Medical Problems: (1) Wound of left foot Status: Acute (2) Wound of right foot Status: Acute (3) Wound, open, foot Status: Acute 3-10 NEEDS PLACEMENT D/W RN AND CASE MGT Vitals Vitals Vital Signs Date Time Temp Pulse Resp B/P (MAP) Pulse Ox O2 Delivery O2 Flow Rate FiO2 05/17/20 08:26 97 145/78 05/17/20 07:00 97.7 20 98 Room Air 97.7 Physical Exam Physical Exam LUNGS: Respirations unlabored. Clear to auscultation bilaterally. No rales, rhonchi, wheezing or retractions. ABDOMEN: Soft. Non-tender. No guarding or rebound. No CVA tenderness. No palpable or pulsatile mass. EXTREMITIES: No acute deformities. No edema, erythema or calf tenderness. Left lower extremity: Large wound on the plantar aspect of the left foot that extends the lateral part of the foot. Mild erythema. No significant drainage. MTP amputation of the third fourth and fifth digit Right lower extremity: MTP amputation of the second and third digit. Wound over this area. Range of motion sensation normal in the bilateral lower extremities. No signif icant edema. Compartments are all soft. SKIN: Warm and dry. No rash. NEUROLOGICAL: Alert and oriented x3. No gross neurological deficits. Moves all 4 extremities PSYCHIATRIC: Normal mood. General: Alert, Oriented X3, Cooperative, No acute distress HEENT: Atraumatic, PERRLA, EOMI, Mucous membr. moist/pink Lungs: Clear to auscultation, Normal air movement Heart: S1S2, RRR, no thrills Breasts: Not examined Abdomen: Normal bowel sounds, Soft, No tenderness Rectal Exam: not examined PELVIC: Examination not indicated Extremities: No clubbing, No cyanosis Neuro: Normal speech, Cranial nerves 3-12 NL Psych/Mental Status: Mental status NL, Mood NL General: Alert, Oriented X3, Cooperative, No acute distress Heart: Regular rate, No murmurs Abdomen: Normal bowel sounds, Soft, No tenderness Extremities: No clubbing, No cyanosis Labs LABS Laboratory Tests Test 05/16/20 16:38 05/16/20 20:31 05/17/20 07:05 Glucose (Fingerstick) 171 mg/dL (70-99) 164 mg/dL (70-99) 130 mg/dL (70-99) Assessment and Plan Assessmemt and Plan Problems Medical Problems: (1) TYPE 2 DIABETES MELLITUS WITH FOOT ULCER Status: Chronic (2) Wound of left foot Status: Acute (3) Wound of right foot Status: Acute Comment Review of Relevant I have reviewed the following items angela (where applicable) has been applied. Labs Laboratory Tests Test 05/15/20 17:08 05/15/20 21:00 05/16/20 07:03 05/16/20 16:38 White Blood Count 8.6 x10^3/uL (4.0-11.0) Red Blood Count 3.21 x10^6/uL (3.50-5.40) Hemoglobin 8.5 g/dL (12.0-15.5) Hematocrit 26.2 % (36.0-47.0) Mean Corpuscular Volume 82 fL (79-100) Mean Corpuscular Hemoglobin 27 pg (25-35) Mean Corpuscular Hemoglobin Concent 33 g/dL (31-37) Red Cell Distribution Width 18.4 % (11.5-14.5) Platelet Count 512 x10^3/uL (140-400) Neutrophils (%) (Auto) 71 % (31-73) Lymphocytes (%) (Auto) 20 % (24-48) Monocytes (%) (Auto) 7 % (0-9) Eosinophils (%) (Auto) 0 % (0-3) Basophils (%) (Auto) 1 % (0-3) Neutrophils # (Auto) 6.1 x10^3/uL (1.8-7.7) Lymphocytes # (Auto) 1.7 x10^3/uL (1.0-4.8) Monocytes # (Auto) 0.6 x10^3/uL (0.0-1.1) Eosinophils # (Auto) 0.0 x10^3/uL (0.0-0.7) Basophils # (Auto) 0.1 x10^3/uL (0.0-0.2) Sodium Level 138 mmol/L (136-145) Potassium Level 3.8 mmol/L (3.5-5.1) Chloride Level 102 mmol/L (98-107) Carbon Dioxide Level 25 mmol/L (21-32) Anion Gap 11 (6-14) Blood Urea Nitrogen 5 mg/dL (7-20) Creatinine 0.9 mg/dL (0.6-1.0) Estimated GFR (Cockcroft-Gault) 68.0 BUN/Creatinine Ratio 6 (6-20) Glucose Level 166 mg/dL (70-99) Calcium Level 8.3 mg/dL (8.5-10.1) Total Bilirubin 0.2 mg/dL (0.2-1.0) Aspartate Amino Transf (AST/SGOT) 26 U/L (15-37) Alanine Aminotransferase (ALT/SGPT) 24 U/L (14-59) Alkaline Phosphatase 108 U/L (46-116) C-Reactive Protein, Quantitative 12.1 mg/L (0-3.3) Total Protein 7.4 g/dL (6.4-8.2) Albumin 2.4 g/dL (3.4-5.0) Albumin/Globulin Ratio 0.5 (1.0-1.7) Glucose (Fingerstick) 169 mg/dL (70-99) 148 mg/dL (70-99) 171 mg/dL (70-99) Test 05/16/20 20:31 05/17/20 07:05 Glucose (Fingerstick) 164 mg/dL (70-99) 130 mg/dL (70-99) Laboratory Tests Test 05/16/20 16:38 05/16/20 20:31 05/17/20 07:05 Glucose (Fingerstick) 171 mg/dL (70-99) 164 mg/dL (70-99) 130 mg/dL (70-99) Medications Current Medications Ceftriaxone Sodium (Rocephin) 1 gm 1X ONCE IVP ; Start 05/15/20 at 16:45; Stop 05/15/20 at 17:50; Status DC Morphine Sulfate (Morphine Sulfate) 4 mg 1X ONCE IV Last administered on 05/15/20at 18:00; Start 05/15/20 at 17:45; Stop 05/15/20 at 17:46; Status DC Morphine Sulfate (Morphine Sulfate) 4 mg STK-MED ONCE .ROUTE ; Start 05/15/20 at 17:46; Stop 05/15/20 at 17:47; Status DC Ertapenem 50 ml @ 100 mls/hr 1X ONCE IV ; Start 05/15/20 at 18:00; Stop 05/15/20 at 18:29; Status DC Daptomycin 530 mg/ Sodium Chloride 50 ml @ 100 mls/hr 1X ONCE IV Last administered on 05/15/20at 19:41; Start 05/15/20 at 19:30; Stop 05/15/20 at 19:59; Status DC Ondansetron HCl (Zofran) 4 mg PRN Q8HRS PRN IV NAUSEA/VOMITING; Start 05/15/20 at 18:45; Stop 05/16/20 at 18:44; Status DC Morphine Sulfate (Morphine Sulfate) 2 mg PRN Q2HR PRN IV PAIN Last administered on 05/16/20at 16:07; Start 05/15/20 at 18:45; Stop 05/16/20 at 18:44; Status DC Lorazepam (Ativan Inj) 1 mg PRN Q4HRS PRN IVP ANXIETY / AGITATION Last administered on 05/16/20at 04:38; Start 05/15/20 at 23:15; Stop 05/16/20 at 19:57; Status DC Non-Formulary Medication (Fluoxetine Hcl ) 60 mg DAILY PO ; Start 05/16/20 at 09:00; Stop 05/15/20 at 23:17; Status DC Fluoxetine HCl (PROzac) 60 mg DAILY PO Last administered on 05/17/20at 08:26; Start 05/16/20 at 00:00 Pharmacy Consult (C.diff Med Screen By Rx) 1 each 1X ONCE MC Last administered on 05/16/20at 09:00; Start 05/16/20 at 09:00; Stop 05/16/20 at 09:01; Status DC Daptomycin 540 mg/ Sodium Chloride 50 ml @ 100 mls/hr Q24H IV Last administered on 05/16/20at 16:45; Start 05/16/20 at 15:00 Meropenem 500 mg/ Sodium Chloride 50 ml @ 100 mls/hr Q8HRS IV Last administered on 05/17/20at 06:09; Start 05/16/20 at 14:00 Lactobacillus Rhamnosus (Culturelle) 1 cap BID PO Last administered on 05/17/20at 08:25; Start 05/16/20 at 21:00 Benzonatate (Tessalon Perle) 100 mg TID PO ; Start 05/16/20 at 14:00; Stop 05/16/20 at 19:57; Status DC Lisinopril (Prinivil) 40 mg DAILY PO Last administered on 05/17/20at 08:26; S tart 05/16/20 at 12:00 Oxycodone/ Acetaminophen (Percocet 5/325) 1 tab PRN Q6HRS PRN PO PAIN Last administered on 05/17/20at 04:49; Start 05/16/20 at 11:15 Folic Acid (Folic Acid) 1 mg DAILY PO Last administered on 05/17/20at 08:27; Start 05/16/20 at 12:00 Insulin Glargine (Lantus Syringe) 30 unit QHS SQ ; Start 05/16/20 at 21:00; Stop 05/16/20 at 19:57; Status DC Metformin HCl (Glucophage) 1,000 mg DAILY PO ; Start 05/17/20 at 09:00; Stop 05/16/20 at 19:57; Status DC Pregabalin (Lyrica) 100 mg BID PO Last administered on 05/17/20at 08:27; Start 05/16/20 at 12:00 Benzonatate (Tessalon Perle) 100 mg PRN TID PRN PO COUGH; Start 05/16/20 at 20:00 Insulin Glargine (Lantus Syringe) 22 unit QHS SQ Last administered on 05/16/20at 21:06; Start 05/16/20 at 21:00 Insulin Human Lispro (HumaLOG) 5 units TIDWMEALS SQ Last administered on 05/17/20at 08:31; Start 05/17/20 at 08:00 Alprazolam (Xanax) 0.25 mg PRN Q8HRS PRN PO ANXIETY / AGITATION; Start 05/16/20 at 20:15 Active Scripts Active Tessalon Perle (Benzonatate) 100 Mg Capsule 1 Cap PO TID Clindamycin Hcl 150 Mg Capsule 3 Cap PO TID Lyrica (Pregabalin) 100 Mg Capsule 1 Cap PO BID Percocet 5-325 Mg Tablet (Oxycodone/Acetaminophen) 1 Each Tablet 1 Tab PO PRN Q6HRS PRN Reported Novolog (Insulin Aspart) 100 Unit/1 Ml Cartridge 100 Unit SQ TID Lantus Solostar (Insulin Glargine,Hum.rec.anlog) 100 Unit/1 Ml Insuln.pen 30 Unit SQ HS Metformin Hcl 1,000 Mg Tablet 1 Tab PO DAILY Folic Acid 0.4 Mg Tablet 0.4 Mg PO DAILY Fluoxetine Hcl 60 Mg Tablet 60 Mg PO DAILY Lisinopril 40 Mg Tablet 1 Tab PO DAILY Depo-Provera (Medroxyprogesterone Acetate) 150 Mg/1 Ml Disp.syrin 1 Ml IM Q4WK Vitals/I & O Vital Sign - Last 24 Hours 05/16/20 05/16/20 05/16/20 05/16/20 12:51 12:51 15:00 16:07 Temp 98.7 98.7 Pulse 104 96 Resp 18 B/P (MAP) 150/70 151/88 (109) Pulse Ox 99 O2 Delivery Room Air Room Air Room Air 05/16/20 05/16/20 05/16/20 05/16/20 16:43 16:43 19:00 20:09 Temp 99.2 99.2 Pulse 110 Resp 18 B/P (MAP) 134/79 (97) Pulse Ox 98 O2 Delivery Room Air Room Air Room Air Room Air 05/16/20 05/16/20 05/16/20 05/17/20 20:15 21:09 23:00 03:00 Temp 98.9 98.8 98.9 98.8 Pulse 91 96 Resp 18 18 18 B/P (MAP) 128/80 (96) 137/67 (90) Pulse Ox 98 98 99 O2 Delivery Room Air Room Air Room Air Room Air 05/17/20 05/17/20 05/17/20 05/17/20 04:49 05:49 07:00 08:26 Temp 97.7 97.7 Pulse 97 97 Resp 18 20 B/P (MAP) 145/78 (100) 145/78 Pulse Ox 99 98 O2 Delivery Room Air Room Air Room Air Intake and Output 05/16/20 05/16/20 05/17/20 15:00 23:00 07:00 Intake Total 320 ml 350 ml 250 ml Balance 320 ml 350 ml 250 ml Justicifation of Admission Dx: Justifications for Admission: Justification of Admission Dx: Yes Cellulitis: Cellulitis ROBBI CISNEROS MD May 17, 2020 08:35
[2020-05-17] MEDS ORDERED: metFORMIN 500 MG TABLET PO SCH (09:00)
--- NOTE | 2020-05-17 09:45 | PDOC ---
Infectious Disease Note Subjective Subjective Patient is feeling good ROS ROS No nausea vomiting diarrhea chest pain shortness of breath Vital Sign Vital Signs Vital Signs Date Time Temp Pulse Resp B/P (MAP) Pulse Ox O2 Delivery O2 Flow Rate FiO2 05/17/20 08:26 97 145/78 05/17/20 07:00 97.7 20 98 Room Air 97.7 Physical Exam PHYSICAL EXAM GENERAL: Alert, oriented female, not in distress. VITAL SIGNS: Stable, afebrile. HEENT: NAD. NECK: Supple, no JVP, no lymphadenopathy. LUNGS: Clear. HEART: S1, S2 regular. ABDOMEN: Benign. EXTREMITIES: No edema or cyanosis. SKIN: Unremarkable except necrotic wound on the left plantar surface with Charcot's deformity and the right foot has an amputation site wound, which is actually healing nicely. Rest of skin exam is unremarkable. Dorsalis pedis is palpable. NEUROLOGIC: The patient is alert, awake and appropriate. No focal neurologic deficit. PICC line site is unremarkable. Labs Lab Laboratory Tests Test 05/16/20 16:38 05/16/20 20:31 05/17/20 07:05 Glucose (Fingerstick) 171 mg/dL (70-99) 164 mg/dL (70-99) 130 mg/dL (70-99) Objective Assessment IMPRESSION: 1. Left foot necrotic plantar ulcer with abscess, status post recent I and D at [facility]. At that time, MRI was negative for osteomyelitis. 2. Right toe amputation site wound, which is healing well. 3. Diabetes with poor control. 4. Diabetic neuropathy. 5. Charcot's disease in the foot. 6. History of asthma. Plan Plan of Care Continue IV antibiotics placement is in the works AMY HUGGINS MD May 17, 2020 09:45
[2020-05-17 11:00] VITALS: BP 152/80
--- NOTE | 2020-05-17 11:44 | NUR ---
SW following. Discussed with RN, pt from home alone, room air, ada diet. Pt has woundvac to each foot and needing IV abx (dapto and Invanz q24). SW met with pt, she is stating she was unable to do the IV infusion at home because she was asleep through the training at [facility]. Pt reporting she struggles to get up the 19 steps to her apartment. Pt wanting to go to a SNF, SW explained how difficult this can be with Medicaid, and facilities preferring to not accept Medicaid SNF pts. Pt requested SW try [facility] as she has been there before. DANIEL had previously checked with Sean from [facility] if they can accept Medicaid SNF, Sean requested the referral stating sometimes they can. DANIEL discussed with pt, she doesn't really want to go to [facility], SW explained this very well could be her only option of facility, or she will have to return home. Pt agreed to the referral being sent because she "wants to get better." Pt wondered if [facility] would be able to take her, DANIEL discussed with Sean at [facility]. Choice of vendor form completed. COVID swab for placement obtained. DANIEL will continue to follow. Addendum: 05/17/20 at 1157 by BROOKE SANCHEZ Referral faxed to [facility], awaiting acceptance decision. [facility] do not take Medicaid for SNF. DANIEL will continue to follow.
[2020-05-17] MEDS: LOPERAMIDE 2 MG CAPSULE PO PRN ×3 (14:03→21:16)
[2020-05-17 15:00] VITALS: BP 145/95
[2020-05-17] MEDS: DAPTOmycin (GENERIC) IVPB 540 MG in IV NORMAL SALINE 50ML 50 ML IV SCH (16:35)
[2020-05-17 19:00] VITALS: BP 150/70
[2020-05-17] MEDS ORDERED: HYDROmorphone 2 MG/ML VIAL IVP PRN (20:15)
[2020-05-17] MEDS: INSULIN GLARGINE SYRINGE. SQ SCH (20:56)
[2020-05-17] MEDS: ZOLPIDEM 5 MG TABLET. PO PRN (21:16)
[2020-05-17 23:00] VITALS: BP 133/88
[2020-05-18] MEDS: oxyCODONE/APAP 5/325 1 TAB TABLET PO PRN ×5 (01:45→19:06)
[2020-05-18 03:00] VITALS: BP 136/76
[2020-05-18] MEDS: MEROPENEM 500 MG in IV NORMAL SALINE 50ML 50 ML IV SCH ×3 (05:49→21:25)
[2020-05-18 07:00] VITALS: BP 116/54
[2020-05-18] MEDS: LACTOBACILLUS RHAMNOSUS GG 1 CAPSULE. PO SCH ×2 (08:34→21:24)
[2020-05-18] MEDS: FLUoxetine HCL 20 MG CAPSULE PO SCH (08:34)
[2020-05-18] MEDS: PREGABALIN 50 MG CAPSULE PO SCH ×2 (08:34→21:25)
[2020-05-18] MEDS: FOLIC ACID 1 MG TABLET. PO SCH (08:35)
[2020-05-18] MEDS: LISINOPRIL 20 MG TABLET PO SCH (08:35)
--- NOTE | 2020-05-18 08:40 | PDOC ---
Infectious Disease Note Subjective Subjective Patient is feeling good Vital Sign Vital Signs Vital Signs Date Time Temp Pulse Resp B/P (MAP) Pulse Ox O2 Delivery O2 Flow Rate FiO2 05/18/20 07:02 Room Air 05/18/20 07:00 98.2 93 20 116/54 (74) 98 98.2 Physical Exam PHYSICAL EXAM GENERAL: Alert, oriented female, not in distress. VITAL SIGNS: Stable, afebrile. HEENT: NAD. NECK: Supple, no JVP, no lymphadenopathy. LUNGS: Clear. HEART: S1, S2 regular. ABDOMEN: Benign. EXTREMITIES: No edema or cyanosis. SKIN: Unremarkable except necrotic wound on the left plantar surface with Charcot's deformity and the right foot has an amputation site wound, which is actually healing nicely. Rest of skin exam is unremarkable. Dorsalis pedis is palpable. NEUROLOGIC: The patient is alert, awake and appropriate. No focal neurologic deficit. PICC line site is unremarkable. Labs Lab Laboratory Tests Test 05/17/20 10:32 05/17/20 16:41 05/17/20 20:28 05/18/20 07:52 Glucose (Fingerstick) 175 mg/dL (70-99) 142 mg/dL (70-99) 182 mg/dL (70-99) 125 mg/dL (70-99) Objective Assessment IMPRESSION: 1. Left foot necrotic plantar ulcer with abscess, status post recent I and D at [facility]. At that time, MRI was negative for osteomyelitis. 2. Right toe amputation site wound, which is healing well. 3. Diabetes with poor control. 4. Diabetic neuropathy. 5. Charcot's disease in the foot. 6. History of asthma. Plan Plan of Care Continue IV antibiotics placement is in the works AMY HUGGINS MD May 18, 2020 08:40
[2020-05-18] MEDS: INSULIN LISPRO 300 UNITS/3 ML VIAL. SQ SCH ×3 (08:42→17:20)
--- NOTE | 2020-05-18 10:13 | PDOC ---
PROGRESS NOTES Date of Service: DATE: 05/18/20 TIME: 10:13 Chief Complaint Chief Complaint DICTATED and SIGNED BY: JOSEFA IYER MD DATE: 05/15/20 [id number] 0 VTE Prophylaxis Ordered VTE Prophylaxis Devices: No VTE Pharmacological Prophylaxi: Yes Assessment/Plan Assessment/Plan Impression: Wound of left foot MORBID OBESITY Wound of right foot asthma Diabetes hypertension FAILED OUT PATIENT TREATMENT SEVERE PAIN ADMITTED id consult iv [facility] wound care needs wound vac rehab, snf placement D/W DR HUGGINS Justifications for Admission Justifications for Admission Other Justification History of Present Illness History of Present Illness Identification/Chief Complaint Chief Complaint recently discharged from [facility] on daptomycin and Invanz and the patient comes in here she wants to go to rehab. History of Present Illness History of Present Illness 44 yr old female recently discharged from [facility] on daptomycin and Invanz and the patient comes in here that she says she just cannot do it at home and she wants to go to rehab. presented emergency department for bilateral foot wounds. discharged from [facility] on Friday. She had I&D of the left foot wound and amputation of the second and third digit on the right foot in January.2020 has a PICC line in the left upper extremity. reports they sent antibiotics to her house. She did not go to wound care as instructed They were supposed to put a wound VAC on the wounds Patient denies fever chills nausea vomiting chest pain shortness of breath new numbness or weakness. Patient denies smoking drug use or alcohol use Past Medical History Past Medical History Past Medical History Past Medical History: Asthma, Depression, Diabetes-Type II, Hypertension, Other Additional Past Medical Histor: NEUROPATHY Past Surgical History: , Other Additional Past Surgical Histo: ABSCESS REMOVALS, LEFT FOOT SURGERY W/ WOUND VAC Smoking Status: Former Smoker Alcohol Use: Rarely Additional Information: "I DRINK 3-4 TIMES A WEEK." Drug Use: None FHX OBESITY Psych: Anxiety, Bipolar, Depression Endocrine: Diabetes Family History Family History: Diabetes, High Cholestrol, Hypertension Social History Smoke: <1 pack per day ALCOHOL: none Drugs: None Current Problem List Problem List Problems Medical Problems: (1) Wound of left foot Status: Acute (2) Wound of right foot Status: Acute (3) Wound, open, foot Status: Acute 3-10 NEEDS PLACEMENT D/W RN AND CASE MGT 3-11 REPORTS PAIN UNCONTROLLED WILL ADJUST D/W RN Vitals Vitals Vital Signs Date Time Temp Pulse Resp B/P (MAP) Pulse Ox O2 Delivery O2 Flow Rate FiO2 05/18/20 09:58 Room Air 05/18/20 08:35 93 116/54 05/18/20 07:00 98.2 20 98 98.2 Physical Exam Physical Exam GENERAL: Alert, oriented female, not in distress. VITAL SIGNS: Stable, afebrile. HEENT: NAD. NECK: Supple, no JVP, no lymphadenopathy. LUNGS: Clear. HEART: S1, S2 regular. ABDOMEN: Benign. EXTREMITIES: No edema or cyanosis. SKIN: Unremarkable except necrotic wound on the left plantar surface with Charcot's deformity and the right foot has an amputation site wound, which is actually healing nicely. Rest of skin exam is unremarkable. Dorsalis pedis is palpable. NEUROLOGIC: The patient is alert, awake and appropriate. No focal neurologic deficit. PICC line site is unremarkable. General: Alert, Oriented X3, Cooperative, No acute distress, mild distress Heart: Regular rate, Normal S1, Normal S2, No murmurs Abdomen: Normal bowel sounds, Soft, No tenderness Extremities: No clubbing, No cyanosis Labs LABS Laboratory Tests Test 05/17/20 10:32 05/17/20 16:41 05/17/20 20:28 05/18/20 07:52 Glucose (Fingerstick) 175 mg/dL (70-99) 142 mg/dL (70-99) 182 mg/dL (70-99) 125 mg/dL (70-99) Assessment and Plan Assessmemt and Plan Problems Medical Problems: (1) TYPE 2 DIABETES MELLITUS WITH FOOT ULCER Status: Chronic (2) Wound of left foot Status: Acute (3) Wound of right foot Status: Acute Comment Review of Relevant I have reviewed the following items angela (where applicable) has been applied. Labs Laboratory Tests Test 05/16/20 16:38 05/16/20 20:31 05/17/20 07:05 05/17/20 10:32 Glucose (Fingerstick) 171 mg/dL (70-99) 164 mg/dL (70-99) 130 mg/dL (70-99) 175 mg/dL (70-99) Test 05/17/20 16:41 05/17/20 20:28 05/18/20 07:52 Glucose (Fingerstick) 142 mg/dL (70-99) 182 mg/dL (70-99) 125 mg/dL (70-99) Laboratory Tests Test 05/17/20 10:32 05/17/20 16:41 05/17/20 20:28 05/18/20 07:52 Glucose (Fingerstick) 175 mg/dL (70-99) 142 mg/dL (70-99) 182 mg/dL (70-99) 125 mg/dL (70-99) Medications Current Medications Ceftriaxone Sodium (Rocephin) 1 gm 1X ONCE IVP ; Start 05/15/20 at 16:45; Stop 05/15/20 at 17:50; Status DC Morphine Sulfate (Morphine Sulfate) 4 mg 1X ONCE IV Last administered on 05/15/20at 18:00; Start 05/15/20 at 17:45; Stop 05/15/20 at 17:46; Status DC Morphine Sulfate (Morphine Sulfate) 4 mg STK-MED ONCE .ROUTE ; Start 05/15/20 at 17:46; Stop 05/15/20 at 17:47; Status DC Ertapenem 50 ml @ 100 mls/hr 1X ONCE IV ; Start 05/15/20 at 18:00; Stop 05/15/20 at 18:29; Status DC Daptomycin 530 mg/ Sodium Chloride 50 ml @ 100 mls/hr 1X ONCE IV Last administered on 05/15/20at 19:41; Start 05/15/20 at 19:30; Stop 05/15/20 at 19:59; Status DC Ondansetron HCl (Zofran) 4 mg PRN Q8HRS PRN IV NAUSEA/VOMITING; Start 05/15/20 at 18:45; Stop 05/16/20 at 18:44; Status DC Morphine Sulfate (Morphine Sulfate) 2 mg PRN Q2HR PRN IV PAIN Last administered on 05/16/20at 16:07; Start 05/15/20 at 18:45; Stop 05/16/20 at 18:44; Status DC Lorazepam (Ativan Inj) 1 mg PRN Q4HRS PRN IVP ANXIETY / AGITATION Last administered on 05/16/20at 04:38; Start 05/15/20 at 23:15; Stop 05/16/20 at 19:57; Status DC Non-Formulary Medication (Fluoxetine Hcl ) 60 mg DAILY PO ; Start 05/16/20 at 09:00; Stop 05/15/20 at 23:17; Status DC Fluoxetine HCl (PROzac) 60 mg DAILY PO Last administered on 05/18/20at 08:34; Start 05/16/20 at 00:00 Pharmacy Consult (C.diff Med Screen By Rx) 1 each 1X ONCE MC Last administered on 05/16/20at 09:00; Start 05/16/20 at 09:00; Stop 05/16/20 at 09:01; Status DC Daptomycin 540 mg/ Sodium Chloride 50 ml @ 100 mls/hr Q24H IV Last administered on 05/17/20at 16:35; Start 05/16/20 at 15:00 Meropenem 500 mg/ Sodium Chloride 50 ml @ 100 mls/hr Q8HRS IV Last adm inistered on 05/18/20at 05:49; Start 05/16/20 at 14:00 Lactobacillus Rhamnosus (Culturelle) 1 cap BID PO Last administered on 05/08 03/30at 08:34; Start 05/16/20 at 21:00 Benzonatate (Tessalon Perle) 100 mg TID PO ; Start 05/16/20 at 14:00; Stop 05/16/20 at 19:57; Status DC Lisinopril (Prinivil) 40 mg DAILY PO Last administered on 05/18/20at 08:35; Start 05/16/20 at 12:00 Oxycodone/ Acetaminophen (Percocet 5/325) 1 tab PRN Q6HRS PRN PO PAIN Last administered on 05/17/20at 04:49; Start 05/16/20 at 11:15; Stop 05/17/20 at 11:49; Status DC Folic Acid (Folic Acid) 1 mg DAILY PO Last administered on 05/18/20at 08:35; Start 05/16/20 at 12:00 Insulin Glargine (Lantus Syringe) 30 unit QHS SQ ; Start 05/16/20 at 21:00; Stop 05/16/20 at 19:57; Status DC Metformin HCl (Glucophage) 1,000 mg DAILY PO ; Start 05/17/20 at 09:00; Stop 05/16/20 at 19:57; Status DC Pregabalin (Lyrica) 100 mg BID PO Last administered on 05/18/20at 08:34; Start 05/16/20 at 12:00 Benzonatate (Tessalon Perle) 100 mg PRN TID PRN PO COUGH; Start 05/16/20 at 20 :00 Insulin Glargine (Lantus Syringe) 22 unit QHS SQ Last administered on 05/17/20at 20:56; Start 05/16/20 at 21:00 Insulin Human Lispro (HumaLOG) 5 units TIDWMEALS SQ Last administered on 05/18/20at 08:42; Start 05/17/20 at 08:00 Alprazolam (Xanax) 0.25 mg PRN Q8HRS PRN PO ANXIETY / AGITATION; Start 05/16/20 at 20:15 Oxycodone/ Acetaminophen (Percocet 5/325) 1 tab PRN Q4HRS PRN PO MODERATE TO SEVERE PAIN Last administered on 05/18/20at 09:58; Start 05/17/20 at 12:00 Zolpidem Tartrate (Ambien) 5 mg PRN QHS PRN PO INSOMNIA Last administered on 05/17/20at 21:16; Start 05/17/20 at 12:00 Loperamide HCl (Imodium) 2 mg PRN Q4HRS PRN PO DIARRHEA Last administered on 05/17/20at 21:16; Start 05/17/20 at 12:45 Hydromorphone HCl (Dilaudid) 0.5 mg PRN Q6HRS PRN IVP BREAKTHRU PAIN Last administered on 05/17/20at 20:47; Start 05/17/20 at 20:15 Active Scripts Active Tessalon Perle (Benzonatate) 100 Mg Capsule 1 Cap PO TID Clindamycin Hcl 150 Mg Capsule 3 Cap PO TID Lyrica (Pregabalin) 100 Mg Capsule 1 Cap PO BID Percocet 5-325 Mg Tablet (Oxycodone/Acetaminophen) 1 Each Tablet 1 Tab PO PRN Q6HRS PRN Reported Novolog (Insulin Aspart) 100 Unit/1 Ml Cartridge 100 Unit SQ TID Lantus Solostar (Insulin Glargine,Hum.rec.anlog) 100 Unit/1 Ml Insuln.pen 30 Unit SQ HS Metformin Hcl 1,000 Mg Tablet 1 Tab PO DAILY Folic Acid 0.4 Mg Tablet 0.4 Mg PO DAILY Fluoxetine Hcl 60 Mg Tablet 60 Mg PO DAILY Lisinopril 40 Mg Tablet 1 Tab PO DAILY Depo-Provera (Medroxyprogesterone Acetate) 150 Mg/1 Ml Disp.syrin 1 Ml IM Q4WK Vitals/I & O Vital Sign - Last 24 Hours 05/17/20 05/17/20 05/17/20 05/17/20 11:00 12:50 14:03 15:00 Temp 98.4 98.2 98.4 98.2 Pulse 99 110 Resp 20 18 B/P (MAP) 152/80 (104) 145/95 (112) Pulse Ox 98 100 O2 Delivery Room Air Room Air Room Air Room Air 05/17/20 05/17/20 05/17/20 05/17/20 17:17 18:40 19:00 19:38 Temp 99.2 99.2 Pulse 108 Resp 20 B/P (MAP) 150/70 (96) Pulse Ox 98 O2 Delivery Room Air Room Air Room Air Room Air 05/17/20 05/17/20 05/17/20 05/17/20 20:47 21:16 21:20 22:23 O2 Delivery Room Air Room Air Room Air Room Air 05/17/20 05/18/20 05/18/20 05/18/20 23:00 01:45 03:00 05:50 Temp 99.0 98.5 99.0 98.5 Pulse 94 88 Resp 18 18 B/P (MAP) 133/88 (103) 136/76 (96) Pulse Ox 100 100 O2 Delivery Room Air Room Air Room Air Room Air 05/18/20 05/18/20 05/18/20 05/18/20 07:00 07:02 07:45 08:35 Temp 98.2 98.2 Pulse 93 93 Resp 20 B/P (MAP) 116/54 (74) 116/54 Pulse Ox 98 O2 Delivery Room Air Room Air Room Air 05/18/20 09:58 O2 Delivery Room Air Intake and Output 05/17/20 05/17/20 05/18/20 15:00 23:00 07:00 Intake Total 100 ml 0 ml Balance 100 ml 0 ml Justicifation of Admission Dx: Justifications for Admission: Justification of Admission Dx: Yes Cellulitis: Cellulitis ROBBI CISNEROS MD May 18, 2020 10:13
--- NOTE | 2020-05-18 10:36 | NUR ---
DANIEL following. Discussed with RN, pt from home alone, room air, ada diet. Pt has woundvac to both feet, stating she cannot return home and cannot do home infusion. [facility] is reviewing referral. DANIEL awaiting acceptance decision. DANIEL will continue to follow. Addendum: 05/18/20 at 1325 by BROOKE SANCHEZ [facility] declined to take pt because her nursing needs are too complex. 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 DANIEL faxed referral to [facility], awaiting acceptance decision. DANIEL received a call from Luda at [facility] to advise they were the company providing home infusion, and that pt had refused to see them before she discharged from [facility]. Luda reported they had a nurse at her place the Friday following her discharge, and pt was non compliant and was a no show. Luda wondering if pt would be a good candidate for the one time [facility]. DANIEL sent message to Dr. Casillas to determine if this would be an option. The wound care needs at home would still prove to be a problem as recently the home health companies have been at capacity for medicaid pts. DANIEL will continue to follow. Addendum: 05/18/20 at 1448 by BROOKE SANCHEZ [facility] has accepted pt and submitted for insurance auth. Awaiting auth for discharge. NICOLETTE and Dr. Lezama notified.
[2020-05-18 11:00] VITALS: BP 126/43
[2020-05-18] MEDS ORDERED: HYDROmorphone 2 MG/ML VIAL IVP PRN (13:00)
[2020-05-18] MEDS: LOPERAMIDE 2 MG CAPSULE PO PRN (13:26)
[2020-05-18] MEDS: DAPTOmycin (GENERIC) IVPB 540 MG in IV NORMAL SALINE 50ML 50 ML IV SCH (14:06)
[2020-05-18 15:00] VITALS: BP 150/80
[2020-05-18 19:15] VITALS: BP 136/71
[2020-05-18] MEDS: ZOLPIDEM 5 MG TABLET. PO PRN (21:24)
[2020-05-18] MEDS: INSULIN GLARGINE SYRINGE. SQ SCH (21:45)
[2020-05-18 23:16] VITALS: BP 137/75
[2020-05-19] MEDS: oxyCODONE/APAP 5/325 1 TAB TABLET PO PRN ×5 (00:54→19:39)
[2020-05-19 03:21] VITALS: BP 128/72
[2020-05-19] MEDS: MEROPENEM 500 MG in IV NORMAL SALINE 50ML 50 ML IV SCH ×3 (06:11→22:42)
[2020-05-19 07:00] VITALS: BP 164/63
--- NOTE | 2020-05-19 08:24 | PDOC ---
PROGRESS NOTES Date of Service: DATE: 05/19/20 TIME: 08:24 Chief Complaint Chief Complaint DICTATED and SIGNED BY: JOSEFA IYER MD DATE: 05/15/20 [id number] 0 VTE Prophylaxis Ordered VTE Prophylaxis Devices: No VTE Pharmacological Prophylaxi: Yes Assessment/Plan Assessment/Plan Impression: Wound of left foot MORBID OBESITY Wound of right foot asthma Diabetes hypertension FAILED OUT PATIENT TREATMENT SEVERE PAIN severe protein-caloric malnutrition ADMITTED id consult iv [facility] wound care needs wound vac rehab, snf placement D/W DR HUGGINS Justifications for Admission Justifications for Admission Other Justification History of Present Illness History of Present Illness Identification/Chief Complaint Chief Complaint recently discharged from [facility] on daptomycin and Invanz and the patient comes in here she wants to go to rehab. History of Present Illness History of Present Illness 44 yr old female recently discharged from [facility] on daptomycin and Invanz and the patient comes in here that she says she just cannot do it at home and she wants to go to rehab. presented emergency department for bilateral foot wounds. discharged from [facility] on Friday. She had I&D of the left foot wound and amputation of the second and third digit on the right foot in January.2020 has a PICC line in the left upper extremity. reports they sent antibiotics to her house. She did not go to wound care as instructed They were supposed to put a wound VAC on the wounds Patient denies fever chills nausea vomiting chest pain shortness of breath new numbness or weakness. Patient denies smoking drug use or alcohol use Past Medical History Past Medical History Past Medical History Past Medical History: Asthma, Depression, Diabetes-Type II, Hypertension, Other Additional Past Medical Histor: NEUROPATHY Past Surgical History: , Other Additional Past Surgical Histo: ABSCESS REMOVALS, LEFT FOOT SURGERY W/ WOUND VAC Smoking Status: Former Smoker Alcohol Use: Rarely Additional Information: "I DRINK 3-4 TIMES A WEEK." Drug Use: None FHX OBESITY Psych: Anxiety, Bipolar, Depression Endocrine: Diabetes Family History Family History: Diabetes, High Cholestrol, Hypertension Social History Smoke: <1 pack per day ALCOHOL: none Drugs: None Current Problem List Problem List Problems Medical Problems: (1) Wound of left foot Status: Acute (2) Wound of right foot Status: Acute (3) Wound, open, foot Status: Acute 3-10 NEEDS PLACEMENT D/W RN AND CASE MGT 3-11 REPORTS PAIN UNCONTROLLED WILL ADJUST D/W RN Vitals Vitals Vital Signs Date Time Temp Pulse Resp B/P (MAP) Pulse Ox O2 Delivery O2 Flow Rate FiO2 05/19/20 07:47 Room Air 05/19/20 07:00 98.4 98 18 164/63 (96) 100 98.4 Physical Exam Physical Exam GENERAL: Alert, oriented female, not in distress. VITAL SIGNS: Stable, afebrile. HEENT: NAD. NECK: Supple, no JVP, no lymphadenopathy. LUNGS: Clear. HEART: S1, S2 regular. ABDOMEN: Benign. EXTREMITIES: No edema or cyanosis. SKIN: Unremarkable except necrotic wound on the left plantar surface with Charcot's deformity and the right foot has an amputation site wound, which is actually healing nicely. Rest of skin exam is unremarkable. Dorsalis pedis is palpable. NEUROLOGIC: The patient is alert, awake and appropriate. No focal neurologic deficit. PICC line site is unremarkable. General: Alert, Oriented X3, Cooperative, No acute distress, mild distress Heart: Regular rate, Normal S1, Normal S2, No murmurs Abdomen: Normal bowel sounds, Soft, No tenderness Extremities: No clubbing, No cyanosis Labs LABS Laboratory Tests Test 05/18/20 10:28 05/18/20 16:45 05/18/20 20:51 05/19/20 07:50 Glucose (Fingerstick) 172 mg/dL (70-99) 140 mg/dL (70-99) 201 mg/dL (70-99) 121 mg/dL (70-99) Assessment and Plan Assessmemt and Plan Problems Medical Problems: (1) TYPE 2 DIABETES MELLITUS WITH FOOT ULCER Status: Chronic (2) Wound of left foot Status: Acute (3) Wound of right foot Status: Acute Comment Review of Relevant I have reviewed the following items angela (where applicable) has been applied. Labs Laboratory Tests Test 05/17/20 10:32 05/17/20 10:55 05/17/20 16:41 05/17/20 20:28 Glucose (Fingerstick) 175 mg/dL (70-99) 142 mg/dL (70-99) 182 mg/dL (70-99) Coronavirus (PCR) Not detected (Not Detected) Test 05/18/20 07:52 05/18/20 10:28 05/18/20 16:45 05/18/20 20:51 Glucose (Fingerstick) 125 mg/dL (70-99) 172 mg/dL (70-99) 140 mg/dL (70-99) 201 mg/dL (70-99) Test 05/19/20 07:50 Glucose (Fingerstick) 121 mg/dL (70-99) Laboratory Tests Test 05/18/20 10:28 05/18/20 16:45 05/18/20 20:51 05/19/20 07:50 Glucose (Fingerstick) 172 mg/dL (70-99) 140 mg/dL (70-99) 201 mg/dL (70-99) 121 mg/dL (70-99) Medications Current Medications Ceftriaxone Sodium (Rocephin) 1 gm 1X ONCE IVP ; Start 05/15/20 at 16:45; Stop 05/15/20 at 17:50; Status DC Morphine Sulfate (Morphine Sulfate) 4 mg 1X ONCE IV Last administered on 05/15/20at 18:00; Start 05/15/20 at 17:45; Stop 05/15/20 at 17:46; Status DC Morphine Sulfate (Morphine Sulfate) 4 mg STK-MED ONCE .ROUTE ; Start 05/15/20 at 17:46; Stop 05/15/20 at 17:47; Status DC Ertapenem 50 ml @ 100 mls/hr 1X ONCE IV ; Start 05/15/20 at 18:00; Stop 05/15/20 at 18:29; Status DC Daptomycin 530 mg/ Sodium Chloride 50 ml @ 100 mls/hr 1X ONCE IV Last administered on 05/15/20at 19:41; Start 05/15/20 at 19:30; Stop 05/15/20 at 19:59; Status DC Ondansetron HCl (Zofran) 4 mg PRN Q8HRS PRN IV NAUSEA/VOMITING; Start 05/15/20 at 18:45; Stop 05/16/20 at 18:44; Status DC Morphine Sulfate (Morphine Sulfate) 2 mg PRN Q2HR PRN IV PAIN Last administered on 05/16/20at 16:07; Start 05/15/20 at 18:45; Stop 05/16/20 at 18:44; Status DC Lorazepam (Ativan Inj) 1 mg PRN Q4HRS PRN IVP ANXIETY / AGITATION Last administered on 05/16/20at 04:38; Start 05/15/20 at 23:15; Stop 05/16/20 at 19:57; Status DC Non-Formulary Medication (Fluoxetine Hcl ) 60 mg DAILY PO ; Start 05/16/20 at 09:00; Stop 05/15/20 at 23:17; Status DC Fluoxetine HCl (PROzac) 60 mg DAILY PO Last administered on 05/18/20at 08:34; Start 05/16/20 at 00:00 Pharmacy Consult (C.diff Med Screen By Rx) 1 each 1X ONCE [facility] Last administered on 05/16/20at 09:00; Start 05/16/20 at 09:00; Stop 05/16/20 at 09:01; Status DC Daptomycin 540 mg/ Sodium Chloride 50 ml @ 100 mls/hr Q24H IV Last administered on 05/18/20at 14:06; Start 05/16/20 at 15:00 Meropenem 500 mg/ Sodium Chloride 50 ml @ 100 mls/hr Q8HRS IV Last administered on 05/19/20at 06:11; Start 05/16/20 at 14:00 Lactobacillus Rhamnosus (Culturelle) 1 cap BID PO Last administered on 05/18/20at 21:24; Start 05/16/20 at 21:00 Benzonatate (Tessalon Perle) 100 mg TID PO ; Start 05/16/20 at 14:00; Stop 05/16/20 at 19:57; Status DC Lisinopril (Prinivil) 40 mg DAILY PO Last administered on 05/18/20at 08:35; St art 05/16/20 at 12:00 Oxycodone/ Acetaminophen (Percocet 5/325) 1 tab PRN Q6HRS PRN PO PAIN Last administered on 05/17/20at 04:49; Start 05/16/20 at 11:15; Stop 05/17/20 at 11:49; Status DC Folic Acid (Folic Acid) 1 mg DAILY PO Last administered on 05/18/20at 08:35; Start 05/16/20 at 12:00 Insulin Glargine (Lantus Syringe) 30 unit QHS SQ ; Start 05/16/20 at 21:00; Stop 05/16/20 at 19:57; Status DC Metformin HCl (Glucophage) 1,000 mg DAILY PO ; Start 05/17/20 at 09:00; Stop 05/16/20 at 19:57; Status DC Pregabalin (Lyrica) 100 mg BID PO Last administered on 05/18/20at 21:25; Start 05/16/20 at 12:00 Benzonatate (Tessalon Perle) 100 mg PRN TID PRN PO COUGH; Start 05/16/20 at 20:00 Insulin Glargine (Lantus Syringe) 22 unit QHS SQ Last administered on 05/18/20at 21:45; Start 05/16/20 at 21:00 Insulin Human Lispro (HumaLOG) 5 units TIDWMEALS SQ Last administered on 05/18/20at 17:20; Start 05/17/20 at 08:00 Alprazolam (Xanax) 0.25 mg PRN Q8HRS PRN PO ANXIETY / AGITATION; Start 05/16/20 at 20:15 Oxycodone/ Acetaminophen (Percocet 5/325) 1 tab PRN Q4HRS PRN PO MODERATE TO SEVERE PAIN Last administered on 05/19/20at 06:14; Start 05/17/20 at 12:00 Zolpidem Tartrate (Ambien) 5 mg PRN QHS PRN PO INSOMNIA Last administered on 05/18/20at 21:24; Start 05/17/20 at 12:00 Loperamide HCl (Imodium) 2 mg PRN Q4HRS PRN PO DIARRHEA Last administered on 05/18/20at 13:26; Start 05/17/20 at 12:45 Hydromorphone HCl (Dilaudid) 0.5 mg PRN Q6HRS PRN IVP BREAKTHRU PAIN Last administered on 05/17/20at 20:47; Start 05/17/20 at 20:15; Stop 05/18/20 at 12:49; Status DC Hydromorphone HCl (Dilaudid) 0.75 mg PRN Q6HRS PRN IVP BREAKTHRU PAIN Last administered on 05/18/20at 17:15; Start 05/18/20 at 13:00 Active Scripts Active Tessalon Perle (Benzonatate) 100 Mg Capsule 1 Cap PO TID Clindamycin Hcl 150 Mg Capsule 3 Cap PO TID Lyrica (Pregabalin) 100 Mg Capsule 1 Cap PO BID Percocet 5-325 Mg Tablet (Oxycodone/Acetaminophen) 1 Each Tablet 1 Tab PO PRN Q6HRS PRN Reported Novolog (Insulin Aspart) 100 Unit/1 Ml Cartridge 100 Unit SQ TID Lantus Solostar (Insulin Glargine,Hum.rec.anlog) 100 Unit/1 Ml Insuln.pen 30 Unit SQ HS Metformin Hcl 1,000 Mg Tablet 1 Tab PO DAILY Folic Acid 0.4 Mg Tablet 0.4 Mg PO DAILY Fluoxetine Hcl 60 Mg Tablet 60 Mg PO DAILY Lisinopril 40 Mg Tablet 1 Tab PO DAILY Depo-Provera (Medroxyprogesterone Acetate) 150 Mg/1 Ml Disp.syrin 1 Ml IM Q4WK Vitals/I & O Vital Sign - Last 24 Hours 05/18/20 05/18/20 05/18/20 05/18/20 08:35 09:58 11:00 11:08 Temp 98.5 98.5 Pulse 93 90 Resp 20 B/P (MAP) 116/54 126/43 (70) Pulse Ox 100 O2 Delivery Room Air Room Air Room Air 05/18/20 05/18/20 05/18/20 05/18/20 14:06 15:00 15:35 17:15 Temp 97.2 97.2 Pulse 102 Resp 20 B/P (MAP) 150/80 (103) Pulse Ox 98 O2 Delivery Room Air Room Air Room Air Room Air 05/18/20 05/18/20 05/18/20 05/18/20 17:57 19:06 19:15 19:30 Temp 99.1 99.1 Pulse 103 Resp 18 B/P (MAP) 136/71 (92) Pulse Ox 96 O2 Delivery Room Air Room Air Room Air Room Air 05/18/20 05/18/20 05/19/20 05/19/20 20:05 23:16 00:54 01:56 Temp 98.4 98.4 Pulse 97 Resp 18 B/P (MAP) 137/75 (95) Pulse Ox 96 100 100 100 O2 Delivery Room Air Room Air Room Air Room Air 05/19/20 05/19/20 05/19/20 05/19/20 03:21 06:14 07:00 07:47 Temp 98.5 98.4 98.5 98.4 Pulse 98 98 Resp 18 18 B/P (MAP) 128/72 (90) 164/63 (96) Pulse Ox 100 100 100 O2 Delivery Room Air Room Air Room Air Room Air Intake and Output 05/18/20 05/18/20 05/19/20 15:00 23:00 07:00 Intake Total 480 ml Balance 480 ml Justicifation of Admission Dx: Justifications for Admission: Justification of Admission Dx: Yes Cellulitis: Cellulitis ROBBI CISNEROS MD May 19, 2020 08:24
--- NOTE | 2020-05-19 08:49 | PDOC ---
Infectious Disease Note Subjective Subjective Patient is feeling good ROS ROS No nausea vomiting diarrhea chest pain shortness of breath Vital Sign Vital Signs Vital Signs Date Time Temp Pulse Resp B/P (MAP) Pulse Ox O2 Delivery O2 Flow Rate FiO2 05/19/20 07:47 Room Air 05/19/20 07:00 98.4 98 18 164/63 (96) 100 98.4 Physical Exam PHYSICAL EXAM GENERAL: Alert, oriented female, not in distress. VITAL SIGNS: Stable, afebrile. HEENT: NAD. NECK: Supple, no JVP, no lymphadenopathy. LUNGS: Clear. HEART: S1, S2 regular. ABDOMEN: Benign. EXTREMITIES: No edema or cyanosis. SKIN: Unremarkable except necrotic wound on the left plantar surface with Charcot's deformity and the right foot has an amputation site wound, which is actually healing nicely. Rest of skin exam is unremarkable. Dorsalis pedis is palpable. NEUROLOGIC: The patient is alert, awake and appropriate. No focal neurologic deficit. PICC line site is unremarkable. Labs Lab Laboratory Tests Test 05/18/20 10:28 05/18/20 16:45 05/18/20 20:51 05/19/20 07:50 Glucose (Fingerstick) 172 mg/dL (70-99) 140 mg/dL (70-99) 201 mg/dL (70-99) 121 mg/dL (70-99) Objective Assessment IMPRESSION: 1. Left foot necrotic plantar ulcer with abscess, status post recent I and D at [facility]. At that time, MRI was negative for osteomyelitis. 2. Right toe amputation site wound, which is healing well. 3. Diabetes with poor control. 4. Diabetic neuropathy. 5. Charcot's disease in the foot. 6. History of asthma. Plan Plan of Care Continue IV antibiotics placement is in the works Offload Dapto and meropenem AMY HUGGINS MD May 19, 2020 08:49
[2020-05-19 08:52] LABS: BASO # 0.1 x10^3/uL (0.0-0.2); BASO % 2 % (0-3); EOS # 0.1 x10^3/uL (0.0-0.7); EOS % 2 % (0-3); HEMOGLOBIN 8.2 g/dL (12.0-15.5); LYMPH # 1.6 x10^3/uL (1.0-4.8); LYMPH % 36 % (24-48); MEAN CORPUSCULAR HEMOGLOBIN 27 pg (25-35); MEAN CORPUSCULAR HGB CONC 32 g/dL (31-37); MEAN CORPUSCULAR VOLUME 84 fL (79-100); MONO # 0.3 x10^3/uL (0.0-1.1); MONO % 7 % (0-9); NEUT # 2.3 x10^3/uL (1.8-7.7); NEUT % 54 % (31-73); PLATELET COUNT 387 x10^3/uL (140-400); RED CELL DISTRIBUTION WIDTH 18.6 % (11.5-14.5); WHITE BLOOD COUNT 4.3 x10^3/uL (4.0-11.0)
[2020-05-19 09:05] LABS: ALBUMIN 2.4 g/dL (3.4-5.0); ALBUMIN/GLOBULIN RATIO 0.5 (1.0-1.7); CALCIUM 7.9 mg/dL (8.5-10.1); CREATININE 0.7 mg/dL (0.6-1.0); GFR 90.9; POTASSIUM 4.2 mmol/L (3.5-5.1); TOTAL BILIRUBIN 0.3 mg/dL (0.2-1.0); TOTAL PROTEIN 6.8 g/dL (6.4-8.2)
[2020-05-19] MEDS: FOLIC ACID 1 MG TABLET. PO SCH (09:28)
[2020-05-19] MEDS: LISINOPRIL 20 MG TABLET PO SCH (09:29)
[2020-05-19] MEDS: FLUoxetine HCL 20 MG CAPSULE PO SCH (09:29)
[2020-05-19] MEDS: LACTOBACILLUS RHAMNOSUS GG 1 CAPSULE. PO SCH ×2 (09:29→19:39)
[2020-05-19] MEDS: PREGABALIN 50 MG CAPSULE PO SCH ×2 (09:30→19:38)
[2020-05-19] MEDS: INSULIN LISPRO 300 UNITS/3 ML VIAL. SQ SCH ×3 (09:34→17:14)
--- NOTE | 2020-05-19 10:39 | NUR ---
SW following. Discussed with RN, pt from home, room air, ada diet. Pt accepted at [facility] pending insurance auth. DANIEL sent message to Vincenzo at [facility] to determine insurance progress. Awaiting response. DANIEL will continue to follow.
[2020-05-19 11:00] VITALS: BP 147/75
[2020-05-19 15:00] VITALS: BP 140/69
[2020-05-19] MEDS: HYDROmorphone 2 MG/ML VIAL IVP PRN (15:03)
[2020-05-19] MEDS: DAPTOmycin (GENERIC) IVPB 540 MG in IV NORMAL SALINE 50ML 50 ML IV SCH (16:09)
--- NOTE | 2020-05-19 16:14 | NUR ---
Wound Care Wound Type/Assessment: Follow up with patient to change wound vac dressing to bilateral foot wounds. Per SW she has been accepted to [facility] and should DC on Friday05/20/20. Pt had showered and wound dressings soiled in the shower. Pt states she has had these wounds for a long time and knows she is not supposed to let them get wet, but she did her best. Wound vac dressings removed and vac units returned to central processing. Both wounds cleansed, measured , and photographed. R dorsal foot wound well granulated with minimal slough in the base. L plantar wound margins are macerated with granulation and slough in the base. Dried blood noted under drape on the lateral side of foot, as well as the medial plantar surface. No other wounds noted on head to toe assessment. Treatment Recommendations/Plan: Bilateral diabetic foot wounds: Cleanse and pat dry. Apply hydrofera blue ready transfer to wound beds, cover with ABD and kerlix. Change every 2-3 days. Education provided: Keep wounds dry, manage blood sugar below 180, limit pressure to wounds Offloading surface/device: pt is independent with mobility Recommended Referrals/Tests: NA Discharge Recommendations for dressings: Recommend continuing wound vac to both wounds on admission to [facility]
[2020-05-19] MEDS: ALPRAZolam 0.25 MG TABLET PO PRN (19:37)
[2020-05-19] MEDS: ZOLPIDEM 5 MG TABLET. PO PRN (19:40)
[2020-05-19 19:50] VITALS: BP 159/70
[2020-05-19] MEDS: INSULIN GLARGINE SYRINGE. SQ SCH (22:41)
[2020-05-19 23:00] VITALS: BP 129/79
[2020-05-20] MEDS: oxyCODONE/APAP 5/325 1 TAB TABLET PO PRN ×5 (01:53→21:05)
[2020-05-20 02:37] VITALS: BP 116/64
[2020-05-20] MEDS: MEROPENEM 500 MG in IV NORMAL SALINE 50ML 50 ML IV SCH ×3 (05:08→21:06)
[2020-05-20] MEDS: ALPRAZolam 0.25 MG TABLET PO PRN ×3 (05:52→21:05)
[2020-05-20 07:34] VITALS: BP 141/74
--- NOTE | 2020-05-20 08:01 | PDOC ---
Infectious Disease Note Subjective Subjective Patient is feeling good ROS ROS o/w neg Vital Sign Vital Signs Vital Signs Date Time Temp Pulse Resp B/P (MAP) Pulse Ox O2 Delivery O2 Flow Rate FiO2 05/20/20 07:34 98.2 87 18 141/74 (96) 99 Room Air 98.2 Physical Exam PHYSICAL EXAM GENERAL: Alert, oriented female, not in distress.On side of bed VITAL SIGNS: Stable, afebrile. HEENT: NAD. NECK: Supple, no JVP, no lymphadenopathy. LUNGS: Clear. HEART: S1, S2 regular. ABDOMEN: Benign. EXTREMITIES: No edema or cyanosis. SKIN: Unremarkable except necrotic wound on the left plantar surface with Charcot's deformity and the right foot has an amputation site wound, which is actually healing nicely. Rest of skin exam is unremarkable. Dorsalis pedis is palpable. NEUROLOGIC: The patient is alert, awake and appropriate. No focal neurologic deficit. PICC line site is unremarkabl LUE Labs Lab Laboratory Tests Test 05/19/20 08:33 05/19/20 08:35 05/19/20 11:33 05/19/20 17:03 White Blood Count 4.3 x10^3/uL (4.0-11.0) Red Blood Count 3.10 x10^6/uL (3.50-5.40) Hemoglobin 8.2 g/dL (12.0-15.5) Hematocrit 26.0 % (36.0-47.0) Mean Corpuscular Volume 84 fL (79-100) Mean Corpuscular Hemoglobin 27 pg (25-35) Mean Corpuscular Hemoglobin Concent 32 g/dL (31-37) Red Cell Distribution Width 18.6 % (11.5-14.5) Platelet Count 387 x10^3/uL (140-400) Neutrophils (%) (Auto) 54 % (31-73) Lymphocytes (%) (Auto) 36 % (24-48) Monocytes (%) (Auto) 7 % (0-9) Eosinophils (%) (Auto) 2 % (0-3) Basophils (%) (Auto) 2 % (0-3) Neutrophils # (Auto) 2.3 x10^3/uL (1.8-7.7) Lymphocytes # (Auto) 1.6 x10^3/uL (1.0-4.8) Monocytes # (Auto) 0.3 x10^3/uL (0.0-1.1) Eosinophils # (Auto) 0.1 x10^3/uL (0.0-0.7) Basophils # (Auto) 0.1 x10^3/uL (0.0-0.2) Sodium Level 142 mmol/L (136-145) Potassium Level 4.2 mmol/L (3.5-5.1) Chloride Level 108 mmol/L (98-107) Carbon Dioxide Level 25 mmol/L (21-32) Anion Gap 9 (6-14) Blood Urea Nitrogen 16 mg/dL (7-20) Creatinine 0.7 mg/dL (0.6-1.0) Estimated GFR (Cockcroft-Gault) 90.9 BUN/Creatinine Ratio 23 (6-20) Glucose Level 183 mg/dL (70-99) Calcium Level 7.9 mg/dL (8.5-10.1) Total Bilirubin 0.3 mg/dL (0.2-1.0) Aspartate Amino Transf (AST/SGOT) 13 U/L (15-37) Alanine Aminotransferase (ALT/SGPT) 16 U/L (14-59) Alkaline Phosphatase 87 U/L (46-116) Total Protein 6.8 g/dL (6.4-8.2) Albumin 2.4 g/dL (3.4-5.0) Albumin/Globulin Ratio 0.5 (1.0-1.7) Glucose (Fingerstick) 120 mg/dL (70-99) 109 mg/dL (70-99) Test 05/19/20 22:42 05/20/20 07:21 Glucose (Fingerstick) 195 mg/dL (70-99) 144 mg/dL (70-99) Objective Assessment IMPRESSION: 1. Left foot necrotic plantar ulcer with abscess, status post recent I and D at [facility]. At that time, MRI was negative for osteomyelitis. 2. Right toe amputation site wound, which is healing well. 3. Diabetes with poor control. 4. Diabetic neuropathy. 5. Charcot's disease in the foot. 6. History of asthma Plan Plan of Care Continue IV antibiotics placement is in the works Nystatin powder Check Ck Offload Dapto and meropenem MARJAN CARLIN MD May 20, 2020 08:01
[2020-05-20] MEDS: LACTOBACILLUS RHAMNOSUS GG 1 CAPSULE. PO SCH ×2 (08:37→21:05)
[2020-05-20] MEDS: FLUoxetine HCL 20 MG CAPSULE PO SCH (08:37)
[2020-05-20] MEDS: FOLIC ACID 1 MG TABLET. PO SCH (08:37)
[2020-05-20] MEDS: PREGABALIN 50 MG CAPSULE PO SCH ×2 (08:38→21:05)
[2020-05-20] MEDS: LISINOPRIL 20 MG TABLET PO SCH (08:38)
[2020-05-20] MEDS: INSULIN LISPRO 300 UNITS/3 ML VIAL. SQ SCH ×3 (08:54→17:07)
[2020-05-20] MEDS: HYDROmorphone 2 MG/ML VIAL IVP PRN ×3 (08:55→21:04)
[2020-05-20 10:35] VITALS: BP 141/72
--- NOTE | 2020-05-20 10:37 | PDOC ---
PROGRESS NOTES Date of Service: DATE: 05/20/20 TIME: 10:37 Chief Complaint Chief Complaint DICTATED and SIGNED BY: JOSEFA IYER MD DATE: 05/15/20 [id number] VTE Prophylaxis Ordered VTE Prophylaxis Devices: No VTE Pharmacological Prophylaxi: Yes Assessment/Plan Assessment/Plan Impression: Wound of left foot MORBID OBESITY Wound of right foot asthma Diabetes hypertension FAILED OUT PATIENT TREATMENT SEVERE PAIN severe protein-caloric malnutrition ADMITTED id consult iv merem wound care needs wound vac rehab, snf placement D/W DR HUGGINS Justifications for Admission Justifications for Admission Other Justification History of Present Illness History of Present Illness Identification/Chief Complaint Chief Complaint recently discharged from [facility] on daptomycin and Invanz and the patient comes in here she wants to go to rehab. History of Present Illness History of Present Illness 44 yr old female recently discharged from [facility] on daptomycin and Invanz and the patient comes in here that she says she just cannot do it at home and she wants to go to rehab. presented emergency department for bilateral foot wounds. discharged from [facility] on Friday. She had I&D of the left foot wound and amputation of the second and third digit on the right foot in January.2020 has a PICC line in the left upper extremity. reports they sent antibiotics to her house. She did not go to wound care as instructed They were supposed to put a wound VAC on the wounds Patient denies fever chills nausea vomiting chest pain shortness of breath new numbness or weakness. Patient denies smoking drug use or alcohol use Past Medical History Past Medical History Past Medical History Past Medical History: Asthma, Depression, Diabetes-Type II, Hypertension, Other Additional Past Medical Histor: NEUROPATHY Past Surgical History: , Other Additional Past Surgical Histo: ABSCESS REMOVALS, LEFT FOOT SURGERY W/ WOUND VAC Smoking Status: Former Smoker Alcohol Use: Rarely Additional Information: "I DRINK 3-4 TIMES A WEEK." Drug Use: None FHX OBESITY Psych: Anxiety, Bipolar, Depression Endocrine: Diabetes Family History Family History: Diabetes, High Cholestrol, Hypertension Social History Smoke: <1 pack per day ALCOHOL: none Drugs: None Current Problem List Problem List Problems Medical Problems: (1) Wound of left foot Status: Acute (2) Wound of right foot Status: Acute (3) Wound, open, foot Status: Acute 3-10 NEEDS PLACEMENT D/W RN AND CASE MGT 3-11 REPORTS PAIN UNCONTROLLED WILL ADJUST D/W RN Vitals Vitals Vital Signs Date Time Temp Pulse Resp B/P (MAP) Pulse Ox O2 Delivery O2 Flow Rate FiO2 05/20/20 10:35 98.3 95 18 141/72 (95) 100 Room Air 98.3 Physical Exam Physical Exam GENERAL: Alert, oriented female, not in distress.On side of bed VITAL SIGNS: Stable, afebrile. HEENT: NAD. NECK: Supple, no JVP, no lymphadenopathy. LUNGS: Clear. HEART: S1, S2 regular. ABDOMEN: Benign. EXTREMITIES: No edema or cyanosis. SKIN: Unremarkable except necrotic wound on the left plantar surface with Charcot's deformity and the right foot has an amputation site wound, which is actually healing nicely. Rest of skin exam is unremarkable. Dorsalis pedis is palpable. NEUROLOGIC: The patient is alert, awake and appropriate. No focal neurologic deficit. PICC line site is unremarkabl LUE General: Alert, Oriented X3, Cooperative, No acute distress, mild distress Heart: Regular rate, Normal S1, Normal S2, No murmurs Abdomen: Normal bowel sounds, Soft, No tenderness Extremities: No clubbing, No cyanosis Labs LABS Laboratory Tests Test 05/19/20 11:33 05/19/20 17:03 05/19/20 22:42 05/20/20 07:21 Glucose (Fingerstick) 120 mg/dL (70-99) 109 mg/dL (70-99) 195 mg/dL (70-99) 144 mg/dL (70-99) Test 05/20/20 09:40 Creatine Kinase 32 U/L (26-192) Assessment and Plan Assessmemt and Plan Problems Medical Problems: (1) TYPE 2 DIABETES MELLITUS WITH FOOT ULCER Status: Chronic (2) Wound of left foot Status: Acute (3) Wound of right foot Status: Acute Comment Review of Relevant I have reviewed the following items angela (where applicable) has been applied. Labs Laboratory Tests Test 05/18/20 16:45 05/18/20 20:51 05/19/20 07:50 05/19/20 08:33 Glucose (Fingerstick) 140 mg/dL (70-99) 201 mg/dL (70-99) 121 mg/dL (70-99) White Blood Count 4.3 x10^3/uL (4.0-11.0) Red Blood Count 3.10 x10^6/uL (3.50-5.40) Hemoglobin 8.2 g/dL (12.0-15.5) Hematocrit 26.0 % (36.0-47.0) Mean Corpuscular Volume 84 fL (79-100) Mean Corpuscular Hemoglobin 27 pg (25-35) Mean Corpuscular Hemoglobin Concent 32 g/dL (31-37) Red Cell Distribution Width 18.6 % (11.5-14.5) Platelet Count 387 x10^3/uL (140-400) Neutrophils (%) (Auto) 54 % (31-73) Lymphocytes (%) (Auto) 36 % (24-48) Monocytes (%) (Auto) 7 % (0-9) Eosinophils (%) (Auto) 2 % (0-3) Basophils (%) (Auto) 2 % (0-3) Neutrophils # (Auto) 2.3 x10^3/uL (1.8-7.7) Lymphocytes # (Auto) 1.6 x10^3/uL (1.0-4.8) Monocytes # (Auto) 0.3 x10^3/uL (0.0-1.1) Eosinophils # (Auto) 0.1 x10^3/uL (0.0-0.7) Basophils # (Auto) 0.1 x10^3/uL (0.0-0.2) Test 05/19/20 08:35 05/19/20 11:33 05/19/20 17:03 05/19/20 22:42 Sodium Level 142 mmol/L (136-145) Potassium Level 4.2 mmol/L (3.5-5.1) Chloride Level 108 mmol/L (98-107) Carbon Dioxide Level 25 mmol/L (21-32) Anion Gap 9 (6-14) Blood Urea Nitrogen 16 mg/dL (7-20) Creatinine 0.7 mg/dL (0.6-1.0) Estimated GFR (Cockcroft-Gault) 90.9 BUN/Creatinine Ratio 23 (6-20) Glucose Level 183 mg/dL (70-99) Calcium Level 7.9 mg/dL (8.5-10.1) Total Bilirubin 0.3 mg/dL (0.2-1.0) Aspartate Amino Transf (AST/SGOT) 13 U/L (15-37) Alanine Aminotransferase (ALT/SGPT) 16 U/L (14-59) Alkaline Phosphatase 87 U/L (46-116) Total Protein 6.8 g/dL (6.4-8.2) Albumin 2.4 g/dL (3.4-5.0) Albumin/Globulin Ratio 0.5 (1.0-1.7) Glucose (Fingerstick) 120 mg/dL (70-99) 109 mg/dL (70-99) 195 mg/dL (70-99) Test 05/20/20 07:21 05/20/20 09:40 Glucose (Fingerstick) 144 mg/dL (70-99) Creatine Kinase 32 U/L (26-192) Laboratory Tests Test 05/19/20 11:33 05/19/20 17:03 05/19/20 22:42 05/20/20 07:21 Glucose (Fingerstick) 120 mg/dL (70-99) 109 mg/dL (70-99) 195 mg/dL (70-99) 144 mg/dL (70-99) Test 05/20/20 09:40 Creatine Kinase 32 U/L (26-192) Medications Current Medications Ceftriaxone Sodium (Rocephin) 1 gm 1X ONCE IVP ; Start 05/15/20 at 16:45; Stop 05/15/20 at 17:50; Status DC Morphine Sulfate (Morphine Sulfate) 4 mg 1X ONCE IV Last administered on 05/15/20at 18:00; Start 05/15/20 at 17:45; Stop 05/15/20 at 17:46; Status DC Morphine Sulfate (Morphine Sulfate) 4 mg STK-MED ONCE .ROUTE ; Start 05/15/20 at 17:46; Stop 05/15/20 at 17:47; Status DC Ertapenem 50 ml @ 100 mls/hr 1X ONCE IV ; Start 05/15/20 at 18:00; Stop 05/15/20 at 18:29; Status DC Daptomycin 530 mg/ Sodium Chloride 50 ml @ 100 mls/hr 1X ONCE IV Last administered on 05/15/20at 19:41; Start 05/15/20 at 19:30; Stop 05/15/20 at 19:59; Status DC Ondansetron HCl (Zofran) 4 mg PRN Q8HRS PRN IV NAUSEA/VOMITING; Start 05/15/20 at 18:45; Stop 05/16/20 at 18:44; Status DC Morphine Sulfate (Morphine Sulfate) 2 mg PRN Q2HR PRN IV PAIN Last administered on 05/16/20at 16:07; Start 05/15/20 at 18:45; Stop 05/16/20 at 18:44; Status DC Lorazepam (Ativan Inj) 1 mg PRN Q4HRS PRN IVP ANXIETY / AGITATION Last administered on 05/16/20at 04:38; Start 05/15/20 at 23:15; Stop 05/16/20 at 19:57; Status DC Non-Formulary Medication (Fluoxetine Hcl ) 60 mg DAILY PO ; Start 05/16/20 at 09:00; Stop 05/15/20 at 23:17; Status DC Fluoxetine HCl (PROzac) 60 mg DAILY PO Last administered on 05/20/20at 08:37; Start 05/16/20 at 00:00 Pharmacy Consult (C.diff Med Screen By Rx) 1 each 1X ONCE MC Last administered on 05/16/20at 09:00; Start 05/16/20 at 09:00; Stop 05/16/20 at 09:01; Status DC Daptomycin 540 mg/ Sodium Chloride 50 ml @ 100 mls/hr Q24H IV Last administered on 05/19/20at 16:09; Start 05/16/20 at 15:00 Meropenem 500 mg/ Sodium Chloride 50 ml @ 100 mls/hr Q8HRS IV Last administered on 05/20/20at 05:08; Start 05/16/20 at 14:00 Lactobacillus Rhamnosus (Culturelle) 1 cap BID PO Last administered on 05/20/20at 08:37; Start 05/16/20 at 21:00 Benzonatate (Tessalon Perle) 100 mg TID PO ; Start 05/16/20 at 14:00; Stop 05/16/20 at 19:57; Status DC Lisinopril (Prinivil) 40 mg DAILY PO Last administered on 05/20/20at 08:38; Start 05/16/20 at 12:00 Oxycodone/ Acetaminophen (Percocet 5/325) 1 tab PRN Q6HRS PRN PO PAIN Last administered on 05/17/20 04:49; Start 05/16/20 at 11:15; Stop 05/17/20 at 11:49; Status DC Folic Acid (Folic Acid) 1 mg DAILY PO Last administered on 05/20/20at 08:37; Start 05/16/20 at 12:00 Insulin Glargine (Lantus Syringe) 30 unit QHS SQ ; Start 05/16/20 at 21:00; Stop 05/16/20 at 19:57; Status DC Metformin HCl (Glucophage) 1,000 mg DAILY PO ; Start 05/17/20 at 09:00; Stop 05/16/20 at 19:57; Status DC Pregabalin (Lyrica) 100 mg BID PO Last administered on 05/20/20at 08:38; Start 05/16/20 at 12:00 Benzonatate (Tessalon Perle) 100 mg PRN TID PRN PO COUGH Last administered on 05/19/20at 19:39; Start 05/16/20 at 20:00 Insulin Glargine (Lantus Syringe) 22 unit QHS SQ Last administered on 05/19/20at 22:41; Start 05/16/20 at 21:00 Insulin Human Lispro (HumaLOG) 5 units TIDWMEALS SQ Last administered on 05/20/20 08:54; Start 05/17/20 at 08:00 Alprazolam (Xanax) 0.25 mg PRN Q8HRS PRN PO ANXIETY / AGITATION Last ad ministered on 05/20/20at 05:52; Start 05/16/20 at 20:15 Oxycodone/ Acetaminophen (Percocet 5/325) 1 tab PRN Q4HRS PRN PO MODERATE TO SEVERE PAIN Last administered on 05/20/20 05:52; Start 05/17/20 at 12:00 Zolpidem Tartrate (Ambien) 5 mg PRN QHS PRN PO INSOMNIA Last administered on 05/19/20at 19:40; Start 05/17/20 at 12:00 Loperamide HCl (Imodium) 2 mg PRN Q4HRS PRN PO DIARRHEA Last administered on 05/18/20at 13:26; Start 05/17/20 at 12:45 Hydromorphone HCl (Dilaudid) 0.5 mg PRN Q6HRS PRN IVP BREAKTHRU PAIN Last administered on 05/17/20at 20:47; Start 05/17/20 at 20:15; Stop 05/18/20 at 12:49; Status DC Hydromorphone HCl (Dilaudid) 0.75 mg PRN Q6HRS PRN IVP BREAKTHRU PAIN Last administered on 05/18/20at 17:15; Start 05/18/20 at 13:00; Stop 05/19/20 at 14:41 ; Status DC Hydromorphone HCl (Dilaudid) 0.85 mg PRN Q4HRS PRN IVP BREAKTHRU PAIN Last administered on 05/20/20at 08:55; Start 05/19/20 at 14:45 Nystatin (Nystop) 1 domitila BID TP ; Start 05/20/20 at 09:00 Active Scripts Active Tessalon Perle (Benzonatate) 100 Mg Capsule 1 Cap PO TID Clindamycin Hcl 150 Mg Capsule 3 Cap PO TID Lyrica (Pregabalin) 100 Mg Capsule 1 Cap PO BID Percocet 5-325 Mg Tablet (Oxycodone/Acetaminophen) 1 Each Tablet 1 Tab PO PRN Q6HRS PRN Reported Novolog (Insulin Aspart) 100 Unit/1 Ml Cartridge 100 Unit SQ TID Lantus Solostar (Insulin Glargine,Hum.rec.anlog) 100 Unit/1 Ml Insuln.pen 30 Unit SQ HS Metformin Hcl 1,000 Mg Tablet 1 Tab PO DAILY Folic Acid 0.4 Mg Tablet 0.4 Mg PO DAILY Fluoxetine Hcl 60 Mg Tablet 60 Mg PO DAILY Lisinopril 40 Mg Tablet 1 Tab PO DAILY Depo-Provera (Medroxyprogesterone Acetate) 150 Mg/1 Ml Disp.syrin 1 Ml IM Q4WK Vitals/I & O Vital Sign - Last 24 Hours 05/19/20 05/19/20 05/19/20 05/19/20 11:00 11:36 14:52 15:00 Temp 98.6 98.6 98.6 98.6 Pulse 99 85 Resp 18 18 B/P (MAP) 147/75 (99) 140/69 (92) Pulse Ox 100 100 O2 Delivery Room Air Room Air Room Air Room Air 05/19/20 05/19/20 05/19/20 05/19/20 15:03 16:05 16:05 19:39 Resp 18 Pulse Ox 100 O2 Delivery Room Air Room Air Room Air Room Air 05/19/20 05/19/20 05/19/20 05/19/20 19:50 20:00 20:39 23:00 Temp 98.6 98.5 98.6 98.5 Pulse 83 93 Resp 18 18 20 B/P (MAP) 159/70 (99) 129/79 (96) Pulse Ox 100 100 98 O2 Delivery Room Air Room Air Room Air 05/20/20 05/20/20 05/20/20 05/20/20 01:53 02:37 02:53 05:52 Temp 98.3 98.3 Pulse 81 Resp 18 18 18 20 B/P (MAP) 116/64 (81) Pulse Ox 98 98 98 98 O2 Delivery Room Air Room Air Room Air Room Air 05/20/20 05/20/20 05/20/20 05/20/20 06:52 07:20 07:34 08:38 Temp 98.2 98.2 Pulse 87 87 Resp 18 18 B/P (MAP) 141/74 (96) 141/74 Pulse Ox 98 99 O2 Delivery Room Air Room Air Room Air 05/20/20 10:35 Temp 98.3 98.3 Pulse 95 Resp 18 B/P (MAP) 141/72 (95) Pulse Ox 100 O2 Delivery Room Air Intake and Output 05/19/20 05/19/20 05/20/20 15:00 23:00 07:00 Intake Total 650 ml 350 ml 700 ml Output Total 1050 ml Balance 650 ml 350 ml -350 ml Justicifation of Admission Dx: Justifications for Admission: Justification of Admission Dx: Yes Cellulitis: Cellulitis ROBBI CISNEROS MD May 20, 2020 10:37
[2020-05-20] MEDS: NYSTATIN TOPICAL POWDER 15GM BOTTLE. TP SCH ×2 (10:39→21:00)
--- NOTE | 2020-05-20 14:46 | NUR ---
Pt up and taking a shower did not want assistance. Was educated on fall risk d/t medication, she said she was fine and could do it herself. Was told to call when complete. She also said that she will change her own dressing because she "knows how she wants it done." was educated regarding wound care provided by nursing staff. Did not want help.
[2020-05-20 14:52] VITALS: BP 139/73
[2020-05-20] MEDS: DAPTOmycin (GENERIC) IVPB 540 MG in IV NORMAL SALINE 50ML 50 ML IV SCH (15:26)
[2020-05-20 19:40] VITALS: BP 145/48
[2020-05-20] MEDS: INSULIN GLARGINE SYRINGE. SQ SCH (21:10)
[2020-05-20 23:48] VITALS: BP 142/74
[2020-05-21 03:15] VITALS: BP 147/82
[2020-05-21] MEDS: MEROPENEM 500 MG in IV NORMAL SALINE 50ML 50 ML IV SCH ×3 (06:11→22:33)
[2020-05-21 07:34] VITALS: BP 179/83
[2020-05-21] MEDS: LACTOBACILLUS RHAMNOSUS GG 1 CAPSULE. PO SCH ×2 (08:03→20:50)
[2020-05-21] MEDS: FOLIC ACID 1 MG TABLET. PO SCH (08:03)
[2020-05-21] MEDS: PREGABALIN 50 MG CAPSULE PO SCH ×2 (08:03→20:50)
[2020-05-21] MEDS: FLUoxetine HCL 20 MG CAPSULE PO SCH (08:04)
[2020-05-21] MEDS: LISINOPRIL 20 MG TABLET PO SCH (08:06)
[2020-05-21] MEDS: INSULIN LISPRO 300 UNITS/3 ML VIAL. SQ SCH ×3 (08:13→16:39)
[2020-05-21] MEDS: oxyCODONE/APAP 5/325 1 TAB TABLET PO PRN ×4 (08:15→22:34)
[2020-05-21] MEDS: NYSTATIN TOPICAL POWDER 15GM BOTTLE. TP SCH ×2 (09:00→20:50)
[2020-05-21] MEDS: HYDROmorphone 2 MG/ML VIAL IVP PRN ×4 (10:08→22:34)
--- NOTE | 2020-05-21 10:30 | NUR ---
Pt is ordering double portions for all meals. She is educated on portions and diabetes. She says that she understands but is hungry because she is board.
[2020-05-21 10:51] VITALS: BP 155/84
--- NOTE | 2020-05-21 11:17 | PDOC ---
PROGRESS NOTES Date of Service: DATE: 05/21/20 TIME: 11:17 Chief Complaint Chief Complaint DICTATED and SIGNED BY: JOSEFA IYER MD DATE: 05/15/20 [id number] 0 VTE Prophylaxis Ordered VTE Prophylaxis Devices: No VTE Pharmacological Prophylaxi: Yes Assessment/Plan Assessment/Plan Impression: Wound of left foot MORBID OBESITY Wound of right foot asthma Diabetes hypertension FAILED OUT PATIENT TREATMENT SEVERE PAIN severe protein-caloric malnutrition ADMITTED id consult iv [facility] wound care needs wound vac rehab, snf placement D/W DR HUGGINS d/w rn Justifications for Admission Justifications for Admission Other Justification at high risk of limb loss History of Present Illness History of Present Illness Identification/Chief Complaint Chief Complaint recently discharged from [facility] on daptomycin and Invanz and the patient comes in here she wants to go to rehab. History of Present Illness History of Present Illness 44 yr old female recently discharged from [facility] on daptomycin and Invanz and the patient comes in here that she says she just cannot do it at home and she wants to go to rehab. presented emergency department for bilateral foot wounds. discharged from [facility] on Friday. She had I&D of the left foot wound and amputation of the second and third digit on the right foot in January.2020 has a PICC line in the left upper extremity. reports they sent antibiotics to her house. She did not go to wound care as instructed They were supposed to put a wound VAC on the wounds Patient denies fever chills nausea vomiting chest pain shortness of breath new numbness or weakness. Patient denies smoking drug use or alcohol use Past Medical History Past Medical History Past Medical History Past Medical History: Asthma, Depression, Diabetes-Type II, Hypertension, Other Additional Past Medical Histor: NEUROPATHY Past Surgical History: , Other Additional Past Surgical Histo: ABSCESS REMOVALS, LEFT FOOT SURGERY W/ WOUND VAC Smoking Status: Former Smoker Alcohol Use: Rarely Additional Information: "I DRINK 3-4 TIMES A WEEK." Drug Use: None FHX OBESITY Psych: Anxiety, Bipolar, Depression Endocrine: Diabetes Family History Family History: Diabetes, High Cholestrol, Hypertension Social History Smoke: <1 pack per day ALCOHOL: none Drugs: None Current Problem List Problem List Problems Medical Problems: (1) Wound of left foot Status: Acute (2) Wound of right foot Status: Acute (3) Wound, open, foot Status: Acute 3-10 NEEDS PLACEMENT D/W RN AND CASE MGT 3-11 REPORTS PAIN UNCONTROLLED WILL ADJUST D/W RN Vitals Vitals Vital Signs Date Time Temp Pulse Resp B/P (MAP) Pulse Ox O2 Delivery O2 Flow Rate FiO2 05/21/20 10:51 98.0 94 18 155/84 (107) 98 Room Air 98.0 Physical Exam Physical Exam GENERAL: Alert, oriented female, not in distress.On side of bed VITAL SIGNS: Stable, afebrile. HEENT: NAD. NECK: Supple, no JVP, no lymphadenopathy. LUNGS: Clear. HEART: S1, S2 regular. ABDOMEN: Benign. EXTREMITIES: No edema or cyanosis. SKIN: necrotic wound on the left plantar surface with Charcot's deformity and the right foot has an amputation site wound, which is actually healing nicely. Rest of skin exam is unremarkable. Dorsalis pedis is palpable. wound vac intact NEUROLOGIC: The patient is alert, awake and appropriate. No focal neurologic deficit. PICC line site is unremarkabl LUE General: Alert, Oriented X3, Cooperative, No acute distress Heart: Regular rate, Normal S1, Normal S2, No murmurs Lungs: Clear Abdomen: Normal bowel sounds, Soft, No tenderness Extremities: No clubbing, No cyanosis Labs LABS Laboratory Tests Test 05/20/20 16:23 05/20/20 21:18 05/21/20 07:22 05/21/20 11:07 Glucose (Fingerstick) 146 mg/dL (70-99) 205 mg/dL (70-99) 122 mg/dL (70-99) 114 mg/dL (70-99) Assessment and Plan Assessmemt and Plan Problems Medical Problems: (1) TYPE 2 DIABETES MELLITUS WITH FOOT ULCER Status: Chronic (2) Wound of left foot Status: Acute (3) Wound of right foot Status: Acute Comment Review of Relevant I have reviewed the following items angela (where applicable) has been applied. Labs Laboratory Tests Test 05/19/20 11:33 05/19/20 17:03 05/19/20 22:42 05/20/20 07:21 Glucose (Fingerstick) 120 mg/dL (70-99) 109 mg/dL (70-99) 195 mg/dL (70-99) 144 mg/dL (70-99) Test 05/20/20 09:40 05/20/20 11:06 05/20/20 16:23 05/20/20 21:18 Creatine Kinase 32 U/L (26-192) Glucose (Fingerstick) 169 mg/dL (70-99) 146 mg/dL (70-99) 205 mg/dL (70-99) Test 05/21/20 07:22 05/21/20 11:07 Glucose (Fingerstick) 122 mg/dL (70-99) 114 mg/dL (70-99) Laboratory Tests Test 05/20/20 16:23 05/20/20 21:18 05/21/20 07:22 05/21/20 11:07 Glucose (Fingerstick) 146 mg/dL (70-99) 205 mg/dL (70-99) 122 mg/dL (70-99) 114 mg/dL (70-99) Medications Current Medications Ceftriaxone Sodium (Rocephin) 1 gm 1X ONCE IVP ; Start 05/15/20 at 16:45; Stop 05/15/20 at 17:50; Status DC Morphine Sulfate (Morphine Sulfate) 4 mg 1X ONCE IV Last administered on 05/15/20at 18:00; Start 05/15/20 at 17:45; Stop 05/15/20 at 17:46; Status DC Morphine Sulfate (Morphine Sulfate) 4 mg STK-MED ONCE .ROUTE ; Start 05/15/20 at 17:46; Stop 05/15/20 at 17:47; Status DC Ertapenem 50 ml @ 100 mls/hr 1X ONCE IV ; Start 05/15/20 at 18:00; Stop 05/15/20 at 18:29; Status DC Daptomycin 530 mg/ Sodium Chloride 50 ml @ 100 mls/hr 1X ONCE IV Last administered on 05/15/20at 19:41; Start 05/15/20 at 19:30; Stop 05/15/20 at 19:59; Status DC Ondansetron HCl (Zofran) 4 mg PRN Q8HRS PRN IV NAUSEA/VOMITING; Start 05/15/20 at 18:45; Stop 05/16/20 at 18:44; Status DC Morphine Sulfate (Morphine Sulfate) 2 mg PRN Q2HR PRN IV PAIN Last administered on 05/16/20at 16:07; Start 05/15/20 at 18:45; Stop 05/16/20 at 18:44; Status DC Lorazepam (Ativan Inj) 1 mg PRN Q4HRS PRN IVP ANXIETY / AGITATION Last administered on 05/16/20at 04:38; Start 05/15/20 at 23:15; Stop 05/16/20 at 19:57; Status DC Non-Formulary Medication (Fluoxetine Hcl ) 60 mg DAILY PO ; Start 05/16/20 at 09:00; Stop 05/15/20 at 23:17; Status DC Fluoxetine HCl (PROzac) 60 mg DAILY PO Last administered on 05/21/20at 08:04; Start 05/16/20 at 00:00 Pharmacy Consult (C.diff Med Screen By Rx) 1 each 1X ONCE MC Last administered on 05/16/20at 09:00; Start 05/16/20 at 09:00; Stop 05/16/20 at 09:01; Status DC Daptomycin 540 mg/ Sodium Chloride 50 ml @ 100 mls/hr Q24H IV Last administered on 05/20/20at 15:26; Start 05/16/20 at 15:00 Meropenem 500 mg/ Sodium Chloride 50 ml @ 100 mls/hr Q8HRS IV Last administered on 05/21/20at 06:11; Start 05/16/20 at 14:00 Lactobacillus Rhamnosus (Culturelle) 1 cap BID PO Last administered on 05/21/20at 08:03; Start 05/16/20 at 21:00 Benzonatate (Tessalon Perle) 100 mg TID PO ; Start 05/16/20 at 14:00; Stop 05/16/20 at 19:57; Status DC Lisinopril (Prinivil) 40 mg DAILY PO Last administered on 05/21/20at 08:06; Start 05/16/20 at 12:00 Oxycodone/ Acetaminophen (Percocet 5/325) 1 tab PRN Q6HRS PRN PO PAIN Last administered on 05/17/20at 04:49; Start 05/16/20 at 11:15; Stop 05/17/20 at 11:49; Status DC Folic Acid (Folic Acid) 1 mg DAILY PO Last administered on 05/21/20at 08:03; Start 05/16/20 at 12:00 Insulin Glargine (Lantus Syringe) 30 unit QHS SQ ; Start 05/16/20 at 21:00; Stop 05/16/20 at 19:57; Status DC Metformin HCl (Glucophage) 1,000 mg DAILY PO ; Start 05/17/20 at 09:00; Stop 05/16/20 at 19:57; Status DC Pregabalin (Lyrica) 100 mg BID PO Last administered on 05/21/20at 08:03; Start 05/16/20 at 12:00 Benzonatate (Tessalon Perle) 100 mg PRN TID PRN PO COUGH Last administered on 05/19/20at 19:39; Start 05/16/20 at 20:00 Insulin Glargine (Lantus Syringe) 22 unit QHS SQ Last administered on 05/20/20at 21:10; Start 05/16/20 at 21:00 Insulin Human Lispro (HumaLOG) 5 units TIDWMEALS SQ Last administered on 05/21/20at 08:13; Start 05/17/20 at 08:00 Alprazolam (Xanax) 0.25 mg PRN Q8HRS PRN PO ANXIETY / AGITATION Last administered on 05/20/20at 21:05; Start 05/16/20 at 20:15 Oxycodone/ Acetaminophen (Percocet 5/325) 1 tab PRN Q4HRS PRN PO MODERATE TO SEVERE PAIN Last administered on 05/21/20at 08:15; Start 05/17/20 at 12:00 Zolpidem Tartrate (Ambien) 5 mg PRN QHS PRN PO INSOMNIA Last administered on 05/19/20at 19:40; Start 05/17/20 at 12:00 Loperamide HCl (Imodium) 2 mg PRN Q4HRS PRN PO DIARRHEA Last administered on 05/18/20 13:26; Start 05/17/20 at 12:45 Hydromorphone HCl (Dilaudid) 0.5 mg PRN Q6HRS PRN IVP BREAKTHRU PAIN Last administered on 05/17/20at 20:47; Start 05/17/20 at 20:15; Stop 05/18/20 at 12:49; Status DC Hydromorphone HCl (Dilaudid) 0.75 mg PRN Q6HRS PRN IVP BREAKTHRU PAIN Last administered on 05/18/20at 17:15; Start 05/18/20 at 13:00; Stop 05/19/20 at 14:41; Status DC Hydromorphone HCl (Dilaudid) 0.85 mg PRN Q4HRS PRN IVP BREAKTHRU PAIN Last administered on 05/21/20at 10:08; Start 05/19/20 at 14:45 Nystatin (Nystop) 1 domitila BID TP Last administered on 05/21/20at 09:00; Start 05/20/20 at 09:00 Active Scripts Active Tessalon Perle (Benzonatate) 100 Mg Capsule 1 Cap PO TID Clindamycin Hcl 150 Mg Capsule 3 Cap PO TID Lyrica (Pregabalin) 100 Mg Capsule 1 Cap PO BID Percocet 5-325 Mg Tablet (Oxycodone/Acetaminophen) 1 Each Tablet 1 Tab PO PRN Q6HRS PRN Reported Novolog (Insulin Aspart) 100 Unit/1 Ml Cartridge 100 Unit SQ TID Lantus Solostar (Insulin Glargine,Hum.rec.anlog) 100 Unit/1 Ml Insuln.pen 30 Unit SQ HS Metformin Hcl 1,000 Mg Tablet 1 Tab PO DAILY Folic Acid 0.4 Mg Tablet 0.4 Mg PO DAILY Fluoxetine Hcl 60 Mg Tablet 60 Mg PO DAILY Lisinopril 40 Mg Tablet 1 Tab PO DAILY Depo-Provera (Medroxyprogesterone Acetate) 150 Mg/1 Ml Disp.syrin 1 Ml IM Q4WK Vitals/I & O Vital Sign - Last 24 Hours 05/20/20 05/20/20 05/20/20 05/20/20 14:52 19:40 20:00 21:04 Temp 97.3 98.1 97.3 98.1 Pulse 93 99 Resp 18 20 B/P (MAP) 139/73 (95) 145/48 (80) Pulse Ox 98 98 98 O2 Delivery Room Air Room Air Room Air Room Air 05/20/20 05/20/20 05/20/20 05/20/20 21:05 21:34 22:05 23:48 Temp 97.6 97.6 Pulse 89 Resp 18 18 18 B/P (MAP) 142/74 (96) Pulse Ox 98 98 98 99 O2 Delivery Room Air Room Air Room Air Room Air 05/21/20 05/21/20 05/21/20 05/21/20 03:15 07:25 07:34 08:06 Temp 97.7 97.6 97.7 97.6 Pulse 95 91 91 Resp 18 18 B/P (MAP) 147/82 (103) 179/83 (115) 179/83 Pulse Ox 97 97 O2 Delivery Room Air Room Air Room Air 05/21/20 10:51 Temp 98.0 98.0 Pulse 94 Resp 18 B/P (MAP) 155/84 (107) Pulse Ox 98 O2 Delivery Room Air Intake and Output 05/20/20 05/20/20 05/21/20 15:00 23:00 07:00 Intake Total 240 ml Balance 240 ml Justicifation of Admission Dx: Justifications for Admission: Justification of Admission Dx: Yes Cellulitis: Cellulitis ROBBI CISNEROS MD May 21, 2020 11:17
[2020-05-21] MEDS: ALPRAZolam 0.25 MG TABLET PO PRN (14:01)
[2020-05-21 14:40] VITALS: BP 108/51
[2020-05-21] MEDS: DAPTOmycin (GENERIC) IVPB 540 MG in IV NORMAL SALINE 50ML 50 ML IV SCH (14:59)
[2020-05-21 19:30] VITALS: BP 115/82
[2020-05-21] MEDS: INSULIN GLARGINE SYRINGE. SQ SCH (20:57)
[2020-05-21] MEDS: ZOLPIDEM 5 MG TABLET. PO PRN (22:33)
[2020-05-21 23:46] VITALS: BP 120/78
[2020-05-22] MEDS: ALPRAZolam 0.25 MG TABLET PO PRN ×2 (01:41→10:58)
[2020-05-22 03:18] VITALS: BP 118/80
[2020-05-22] MEDS: oxyCODONE/APAP 5/325 1 TAB TABLET PO PRN ×2 (04:41→08:49)
[2020-05-22] MEDS: MEROPENEM 500 MG in IV NORMAL SALINE 50ML 50 ML IV SCH ×3 (05:46→22:18)
[2020-05-22 07:22] VITALS: BP 137/72
--- NOTE | 2020-05-22 08:25 | PDOC ---
[employer] PROGRESS NOTE Date of Service DOS: DATE: 05/22/20 TIME: 08:22 Chief Complaint Chief Complaint A/P: Wound of left foot - s/p prior partial amputation MORBID OBESITY Wound of right foot - s/p prior amputation Asthma Diabetes Hypertension FAILED OUT PATIENT TREATMENT SEVERE PAIN Severe protein-caloric malnutrition Physical deconditioning Weakness Gait instability ADMITTED id consult janessa castro wound care needs wound vac rehab, snf placement History of Present Illness History of Present Illness Ms Ayala is a 44 yr old female w/ PMHx asthma, depression, HTN, DM2, diabetic polyneuropathy recently discharged from [facility] on daptomycin and Invanz and the patient comes in here that she says she just cannot do it at home and she wants to go to rehab. presented emergency department for bilateral foot wounds. discharged from [facility] on Friday. She had I&D of the left foot wound and amputation of the second and third digit on the right foot in January.2020 has a PICC line in the left upper extremity. reports they sent antibiotics to her house. She did not go to wound care as instructed They were supposed to put a wound VAC on the wounds Patient denies fever chills nausea vomiting chest pain shortness of breath new numbness or weakness. Patient denies smoking drug use or alcohol use 05/17 NEEDS PLACEMENT D/W RN AND CASE MGT 05/18 REPORTS PAIN UNCONTROLLED WILL ADJUST Afebrile. Notes today her pain is not well controlled on 5 mg of oxycodone is asking if this could be increased. Especially debridement. She also notes that she was instructed to be nonweightbearing per vascular surgery on her previous hospital stay. Also has not been on her home dose of valproic acid. Vitals/I&O Vitals/I&O: Vital Signs Date Time Temp Pulse Resp B/P (MAP) Pulse Ox O2 Delivery O2 Flow Rate FiO2 05/22/20 07:22 98.6 89 18 137/72 (93) 98 Room Air 98.6 I & O 05/21/20 05/21/20 05/22/20 15:00 23:00 07:00 Intake Total 300 ml Balance 300 ml Physical Exam Physical Exam: GENERAL: Alert, oriented female, not in distress.On side of bed VITAL SIGNS: Stable, afebrile. HEENT: NAD. NECK: Supple, no JVP, no lymphadenopathy. LUNGS: Clear. HEART: S1, S2 regular. ABDOMEN: Benign. EXTREMITIES: No edema or cyanosis. SKIN: necrotic wound on the left plantar surface with Charcot's deformity and the right foot has an amputation site wound, which is actually healing nicely. Rest of skin exam is unremarkable. Dorsalis pedis is palpable. wound vac intact NEUROLOGIC: The patient is alert, awake and appropriate. No focal neurologic deficit. PICC line site is unremarkabl LUE General: Alert, Oriented X3, Cooperative, No acute distress Heart: Regular rate, Normal S1, Normal S2, No murmurs Lungs: Clear Abdomen: Normal bowel sounds, Soft, No tenderness Extremities: No clubbing, No cyanosis Labs Labs: Laboratory Tests Test 05/21/20 11:07 05/21/20 16:08 05/21/20 21:48 05/22/20 07:03 Glucose (Fingerstick) 114 mg/dL (70-99) 194 mg/dL (70-99) 227 mg/dL (70-99) 130 mg/dL (70-99) Assessment and Plan Assessmemt and Plan Problems Medical Problems: (1) TYPE 2 DIABETES MELLITUS WITH FOOT ULCER Status: Chronic (2) Wound of left foot Status: Acute (3) Wound of right foot Status: Acute Comment Review of Relevant I have reviewed the following items angela (where applicable) has been applied. Justifications for Admission Other Justification LIVE CONTRERAS MD May 22, 2020 08:25
[2020-05-22] MEDS: LACTOBACILLUS RHAMNOSUS GG 1 CAPSULE. PO SCH ×2 (08:42→20:33)
[2020-05-22] MEDS: PREGABALIN 50 MG CAPSULE PO SCH ×2 (08:42→20:33)
[2020-05-22] MEDS: FOLIC ACID 1 MG TABLET. PO SCH (08:42)
[2020-05-22] MEDS: FLUoxetine HCL 20 MG CAPSULE PO SCH (08:43)
[2020-05-22] MEDS: LISINOPRIL 20 MG TABLET PO SCH (08:43)
[2020-05-22] MEDS: INSULIN LISPRO 300 UNITS/3 ML VIAL. SQ SCH ×3 (08:50→17:05)
--- NOTE | 2020-05-22 09:15 | PDOC ---
Infectious Disease Note Subjective: Subjective Patient without complaints except for nystatin is not helping with vaginitis Awaiting wound VAC placement today Awaiting placement Vital Signs: Vital Signs Vital Signs Date Time Temp Pulse Resp B/P (MAP) Pulse Ox O2 Delivery O2 Flow Rate FiO2 05/22/20 08:43 89 137/72 05/22/20 07:22 98.6 18 98 Room Air 98.6 Physical Exam: PHYSICAL EXAM GENERAL: Alert, oriented female, not in distress.On side of bed HEENT: Anicteric no thrush NECK: Supple, no JVP, no lymphadenopathy. LUNGS: Clear. HEART: S1, S2 regular. ABDOMEN: Obese soft bowel sounds present EXTREMITIES: No edema or cyanosis. SKIN: necrotic wound on the left plantar surface with Charcot's deformity and the right foot has an amputation site wound, which is actually healing nicely. Rest of skin exam is unremarkable. Dorsalis pedis is palpable. wound vac intact NEUROLOGIC: The patient is alert, awake and appropriate. No focal neurologic deficit. Left upper extreme PICC line clean Medications: Inpatient Meds: Medications reviewed. Labs: Lab Laboratory Tests Test 05/21/20 11:07 05/21/20 16:08 05/21/20 21:48 05/22/20 07:03 Glucose (Fingerstick) 114 mg/dL (70-99) 194 mg/dL (70-99) 227 mg/dL (70-99) 130 mg/dL (70-99) Objective: Assessment: 1. Left foot necrotic plantar ulcer with abscess, status post recent I and D at [facility]. At that time, MRI was negative for osteomyelitis. 2. Right toe amputation site wound, which is healing well. Status post I&D healing well 3. Diabetes with poor control. 4. Diabetic neuropathy. 5. Charcot's disease in the foot. 6. History of asthma Plan: Plan of Care Continue daptomycin and meropenem CK 32 Awaiting placement Fluconazole as nystatin powder is not helping Wound/VAC care as directed Offload Monitor labs Supportive care KEYSHAWN HUGGINS MD May 22, 2020 09:15
--- NOTE | 2020-05-22 09:26 | NUR ---
DANIEL following. Discussed with RN, pt from home alone, room air, ada diet. Insurance denied LTAC, stated they would approve SNF. DANIEL has tried 5 SNF facilities, who have all said no due to [facility] only covering room and board, and pt needing significant wound care, and expensive IV abx. Peer to peer arranged for Dr. Heller to attempt to overturn LTAC denial. [facility] could not give a time of when the physician will call Dr. Heller. Dr. Heller notified. DANIEL will continue to send referral to SNF facilities in the mean time. DANIEL discussed with pt this morning. Denied facilities: [facility], [facility], [facility], [facility]. DANIEL will continue to follow. Addendum: 05/22/20 at 1016 by BROOKE SANCHEZ Referral faxed to [facility], [facility], and [facility]. Awaiting acceptance decisions, and result of peer to peer. DANIEL will continue to follow. Addendum: 05/22/20 at 1246 by BROOKE SANCHEZ [facility], [place] [facility], [facility], [facility], [facility] and [facility] all declined due to pt's insurance. Referral faxed to [facility], [facility] and [facility]. Awaiting acceptance decisions. DANIEL will continue to follow. Addendum: 05/22/20 at 1247 by BROOKE SANCHEZ Voicemail left for admissions at [facility], and [facility]. Addendum: 05/22/20 at 1256 by BROOKE SANCHEZ [facility] declined. [facility] discussing. DANIEL will continue to follow. Addendum: 05/22/20 at 1511 by BROOKE SANCHEZ [facility] declined to take pt due to having had pt before and pt's behaviors whilst at [facility]. They also declined because she only has Medicaid and is needing IV abx and wound care. Wali from [facility] is coming to meet pt. DANIEL will continue to follow.
[2020-05-22] MEDS: FLUCONAZOLE 100 MG TABLET. PO SCH (10:52)
[2020-05-22] MEDS: HYDROmorphone 2 MG/ML VIAL IVP PRN ×2 (10:56→15:14)
[2020-05-22 11:13] VITALS: BP 139/79
[2020-05-22] MEDS ORDERED: VALP250C2 PO (11:30)
[2020-05-22] MEDS: VALPROIC ACID 250 MG CAPSULE. PO SCH ×2 (12:59→20:33)
[2020-05-22] MEDS: oxyCODONE/APAP 7.5/325 1 TAB TABLET PO PRN ×2 (13:11→19:22)
[2020-05-22 14:31] VITALS: BP 119/60
[2020-05-22] MEDS: DAPTOmycin (GENERIC) IVPB 540 MG in IV NORMAL SALINE 50ML 50 ML IV SCH (15:05)
[2020-05-22 19:29] VITALS: BP 130/68
[2020-05-22] MEDS ORDERED: ALTEPLASE 1MG SYRINGE. INT CAT ONE (20:30)
[2020-05-22] MEDS: ZOLPIDEM 5 MG TABLET. PO PRN (20:33)
[2020-05-22] MEDS: INSULIN GLARGINE SYRINGE. SQ SCH (20:53)
[2020-05-22] MEDS: PSYLLIUM HUSK (SUGAR FREE) 1 PKT PACKET PO SCH (21:31)
[2020-05-22 23:00] VITALS: BP 119/77
[2020-05-23] MEDS: HYDROmorphone 2 MG/ML VIAL IVP PRN ×4 (01:04→22:19)
[2020-05-23 03:00] VITALS: BP 125/50
[2020-05-23] MEDS: ALPRAZolam 0.25 MG TABLET PO PRN ×2 (03:07→22:19)
[2020-05-23] MEDS: oxyCODONE/APAP 7.5/325 1 TAB TABLET PO PRN ×4 (03:08→20:20)
[2020-05-23] MEDS: MEROPENEM 500 MG in IV NORMAL SALINE 50ML 50 ML IV SCH ×3 (05:52→22:19)
[2020-05-23 07:00] VITALS: BP 123/64
[2020-05-23] MEDS: FOLIC ACID 1 MG TABLET. PO SCH (08:30)
[2020-05-23] MEDS: FLUCONAZOLE 100 MG TABLET. PO SCH (08:30)
[2020-05-23] MEDS: LACTOBACILLUS RHAMNOSUS GG 1 CAPSULE. PO SCH ×2 (08:30→20:20)
[2020-05-23] MEDS: LISINOPRIL 20 MG TABLET PO SCH (08:31)
[2020-05-23] MEDS: VALPROIC ACID 250 MG CAPSULE. PO SCH ×2 (08:31→20:20)
[2020-05-23] MEDS: PREGABALIN 50 MG CAPSULE PO SCH ×2 (08:31→20:20)
[2020-05-23] MEDS: FLUoxetine HCL 20 MG CAPSULE PO SCH (08:31)
[2020-05-23] MEDS: INSULIN LISPRO 300 UNITS/3 ML VIAL. SQ SCH ×3 (08:37→17:04)
--- NOTE | 2020-05-23 09:00 | NUR ---
Wound Care Wound Type/Assessment: Follow up with patient for bilateral DFUs. Upon entering room, pt asked if we could wait until she got out of the shower to apply the wound vacs. Again re-educated pt that she should not be getting in the shower with open wounds on her feet, and that the wound vacs would not be applied d/t her non-compliance with the equipment. Dressings removed, wounds cleaned and measured, left plantar midfoot relatively clean, beefy red, slough and adipose tissue present, R toes amp site is smaller in size, slough covered, minimal drainage. No other wounds noted on head to toe assessment. Treatment Recommendations/Plan: Bilateral diabetic foot wounds: Cleanse and pat dry. Apply Hydrofera blue ready transfer to wound beds, cover with ABD and kerlix. Change every 2-3 days. Education provided: Keep wounds dry, manage blood sugar below 180, limit pressure to wounds with NWB on L foot, no showering. Offloading surface/device: Pt is independent with mobility and refuses to offload left foot, pt seen multiple times standing and walking around without assistive devices. Recommended Referrals/Tests: NA Discharge Recommendations for dressings: Recommend continuing with HFB to wounds, or if pt is agreeable to keep wound vacs out of the shower, left foot would benefit further from vac therapy. *Upon attempting to post dressing change instructions above bed, pt got very angry and began yelling at WCRNs, stating "I told you I want the overhead lights left on, don't touch them". Informed pt that no one was touching her lights.
[2020-05-23 10:53] VITALS: BP 121/60
--- NOTE | 2020-05-23 10:58 | PDOC ---
Infectious Disease Note Subjective: Subjective Patient without complaints Vaginitis symptoms improved after fluconazole Awaiting placement Vital Signs: Vital Signs Vital Signs Date Time Temp Pulse Resp B/P (MAP) Pulse Ox O2 Delivery O2 Flow Rate FiO2 05/23/20 10:53 98.5 90 18 121/60 (80) 98 Room Air 98.5 Physical Exam: PHYSICAL EXAM GENERAL: Alert, oriented female, not in distress.On side of bed HEENT: Anicteric no thrush NECK: Supple, no JVP, no lymphadenopathy. LUNGS: Clear. HEART: S1, S2 regular. ABDOMEN: Obese soft bowel sounds present EXTREMITIES: No edema or cyanosis. SKIN: necrotic wound on the left plantar surface with Charcot's deformity and the right foot has an amputation site wound, which is actually healing nicely. Rest of skin exam is unremarkable. Dorsalis pedis is palpable. wound vac intact NEUROLOGIC: The patient is alert, awake and appropriate. No focal neurologic deficit. Left upper extreme PICC line clean Medications: Inpatient Meds: Medications reviewed. Labs: Lab Laboratory Tests Test 05/22/20 11:05 05/22/20 16:05 05/22/20 20:40 05/23/20 07:35 Glucose (Fingerstick) 120 mg/dL (70-99) 126 mg/dL (70-99) 176 mg/dL (70-99) 132 mg/dL (70-99) Objective: Assessment: 1. Left foot necrotic plantar ulcer with abscess, status post recent I and D at [facility]. At that time, MRI was negative for osteomyelitis. 2. Right toe amputation site wound, which is healing well. Status post I&D healing well 3. Diabetes with poor control. 4. Diabetic neuropathy. 5. Charcot's disease in the foot. 6. History of asthma Plan: Plan of Care Continue daptomycin and meropenem CK 32 Fluconazole 05/22 Wound/VAC care as directed Emphasized importance for offload Monitor labs Supportive care Awaiting placement Discussed with nursing staff Discussed with KEYSHAWN Patrick MD May 23, 2020 10:58
--- NOTE | 2020-05-23 13:47 | PDOC ---
[employer] PROGRESS NOTE Date of Service DOS: DATE: 05/23/20 TIME: 13:40 Chief Complaint Chief Complaint A/P: Wound of left foot - s/p prior partial amputation MORBID OBESITY Wound of right foot - s/p prior amputation Asthma Diabetes Hypertension FAILED OUT PATIENT TREATMENT SEVERE PAIN Severe protein-caloric malnutrition Physical deconditioning Weakness Gait instability ADMITTED id consult janessa castro wound care needs wound vac rehab, snf placement History of Present Illness History of Present Illness Ms Ayala is a 44 yr old female w/ PMHx asthma, depression, HTN, DM2, diabetic polyneuropathy recently discharged from [facility] on daptomycin and Invanz and the patient comes in here that she says she just cannot do it at home and she wants to go to rehab. presented emergency department for bilateral foot wounds. discharged from [facility] on Friday. She had I&D of the left foot wound and amputation of the second and third digit on the right foot in January.2020 has a PICC line in the left upper extremity. reports they sent antibiotics to her house. She did not go to wound care as instructed They were supposed to put a wound VAC on the wounds Patient denies fever chills nausea vomiting chest pain shortness of breath new numbness or weakness. Patient denies smoking drug use or alcohol use 05/17 NEEDS PLACEMENT D/W RN AND CASE MGT 05/18 REPORTS PAIN UNCONTROLLED WILL ADJUST 05/22: Afebrile. Pain is not well controlled on 5 mg of oxycodone is asking if this could be increased. Especially debridement. She also notes that she was instructed to be nonweightbearing per vascular surgery on her previous hospital stay. Also has not been on her home dose of valproic acid. Afebrile. Notes her pain is better controlled. She is concerned about having a wound VAC replaced talk to her about this being likely due to compliance issues previously she said she will be compliant once wound care come back. D/w ID. Vitals/I&O Vitals/I&O: Vital Signs Date Time Temp Pulse Resp B/P (MAP) Pulse Ox O2 Delivery O2 Flow Rate FiO2 05/23/20 10:53 98.5 90 18 121/60 (80) 98 Room Air 98.5 I & O 05/22/20 05/22/20 05/23/20 15:00 23:00 07:00 Intake Total 50 ml Balance 50 ml Physical Exam Physical Exam: GENERAL: Alert, oriented female, not in distress.On side of bed HEENT: Anicteric no thrush NECK: Supple, no JVP, no lymphadenopathy. LUNGS: Clear. HEART: S1, S2 regular. ABDOMEN: Obese soft bowel sounds present EXTREMITIES: No edema or cyanosis. SKIN: necrotic wound on the left plantar surface with Charcot's deformity and the right foot has an amputation site wound, which is actually healing nicely. Rest of skin exam is unremarkable. Dorsalis pedis is palpable. wound vac intact NEUROLOGIC: The patient is alert, awake and appropriate. No focal neurologic deficit. Left upper extreme PICC line clean General: Alert, Oriented X3, Cooperative, No acute distress Heart: Regular rate, Normal S1, Normal S2, No murmurs Lungs: Clear Abdomen: Normal bowel sounds, Soft, No tenderness Extremities: No clubbing, No cyanosis Labs Labs: Laboratory Tests Test 05/22/20 16:05 05/22/20 20:40 05/23/20 07:35 05/23/20 11:38 Glucose (Fingerstick) 126 mg/dL (70-99) 176 mg/dL (70-99) 132 mg/dL (70-99) 112 mg/dL (70-99) Assessment and Plan Assessmemt and Plan Problems Medical Problems: (1) TYPE 2 DIABETES MELLITUS WITH FOOT ULCER Status: Chronic (2) Wound of left foot Status: Acute (3) Wound of right foot Status: Acute Comment Review of Relevant I have reviewed the following items angela (where applicable) has been applied. Medications: Current Medications Medications (Trade) Dose Ordered Sig/Nalini Route PRN Reason Start Time Stop Time Status Last Admin Dose Admin Psyllium Hydrophilic Mucilloid (Metamucil Fiber Packet) 1 pkt QHS PO 05/22/20 21:00 05/22/20 21:31 Alteplase, Recombinant (Cathflo For Central Catheter Clearance) 1 mg 1X ONCE INT CAT 05/22/20 20:30 05/22/20 20:31 DC 05/22/20 20:33 Hydromorphone HCl (Dilaudid) 0.5 mg PRN Q4HRS PRN IVP BREAKTHRU PAIN 05/23/20 11:00 05/23/20 11:22 Justifications for Admission Other Justification LIVE CONTRERAS MD May 23, 2020 13:47
[2020-05-23] MEDS: DAPTOmycin (GENERIC) IVPB 540 MG in IV NORMAL SALINE 50ML 50 ML IV SCH (14:46)
[2020-05-23 15:00] VITALS: BP 120/72
--- NOTE | 2020-05-23 15:55 | NUR ---
Wound care examined and re-dressed patients wounds this morning. Patient was told not to shower after dressings were changed. After wound care left patient took shower with dressings on, then removed her own dressings and re-dressed her own dressings.
[2020-05-23] MEDS: MULTIVITAMIN with MINERAL TABLET. PO SCH (17:00)
[2020-05-23 19:00] VITALS: BP 144/75
[2020-05-23] MEDS: PSYLLIUM HUSK (SUGAR FREE) 1 PKT PACKET PO SCH (20:19)
[2020-05-23] MEDS: ZOLPIDEM 5 MG TABLET. PO PRN (20:19)
[2020-05-23] MEDS: INSULIN GLARGINE SYRINGE. SQ SCH (20:25)
[2020-05-23 23:00] VITALS: BP 124/78
[2020-05-24 03:00] VITALS: BP 114/69
[2020-05-24] MEDS: MEROPENEM 500 MG in IV NORMAL SALINE 50ML 50 ML IV SCH ×2 (05:23→14:09)
[2020-05-24] MEDS: oxyCODONE/APAP 7.5/325 1 TAB TABLET PO PRN ×2 (05:23→12:57)
[2020-05-24 07:10] VITALS: BP 132/76
[2020-05-24] MEDS: FLUoxetine HCL 20 MG CAPSULE PO SCH (08:18)
[2020-05-24] MEDS: PREGABALIN 50 MG CAPSULE PO SCH (08:18)
[2020-05-24] MEDS: VALPROIC ACID 250 MG CAPSULE. PO SCH (08:18)
[2020-05-24] MEDS: LISINOPRIL 20 MG TABLET PO SCH (08:19)
[2020-05-24] MEDS: LACTOBACILLUS RHAMNOSUS GG 1 CAPSULE. PO SCH (08:19)
[2020-05-24] MEDS: MULTIVITAMIN with MINERAL TABLET. PO SCH (08:19)
[2020-05-24] MEDS: FLUCONAZOLE 100 MG TABLET. PO SCH (08:19)
[2020-05-24] MEDS: FOLIC ACID 1 MG TABLET. PO SCH (08:19)
[2020-05-24] MEDS: INSULIN LISPRO 300 UNITS/3 ML VIAL. SQ SCH ×3 (08:27→17:23)
[2020-05-24 08:45] LABS: BASO # 0.1 x10^3/uL (0.0-0.2); BASO % 1 % (0-3); EOS # 0.2 x10^3/uL (0.0-0.7); EOS % 4 % (0-3); HEMATOCRIT 26.3 % (36.0-47.0); HEMOGLOBIN 8.3 g/dL (12.0-15.5); LYMPH # 2.3 x10^3/uL (1.0-4.8); LYMPH % 50 % (24-48); MEAN CORPUSCULAR HEMOGLOBIN 26 pg (25-35); MEAN CORPUSCULAR HGB CONC 32 g/dL (31-37); MEAN CORPUSCULAR VOLUME 83 fL (79-100); MONO # 0.4 x10^3/uL (0.0-1.1); MONO % 8 % (0-9); NEUT # 1.7 x10^3/uL (1.8-7.7); NEUT % 37 % (31-73); PLATELET COUNT 302 x10^3/uL (140-400); RED BLOOD COUNT 3.16 x10^6/uL (3.50-5.40); RED CELL DISTRIBUTION WIDTH 18.3 % (11.5-14.5); WHITE BLOOD COUNT 4.7 x10^3/uL (4.0-11.0)
--- NOTE | 2020-05-24 08:46 | PDOC ---
[employer] PROGRESS NOTE Date of Service DOS: DATE: 05/24/20 TIME: 08:46 Chief Complaint Chief Complaint A/P: Wound of left foot - s/p prior partial amputation MORBID OBESITY Wound of right foot - s/p prior amputation Asthma Diabetes Hypertension FAILED OUT PATIENT TREATMENT SEVERE PAIN Severe protein-caloric malnutrition Physical deconditioning Weakness Gait instability ADMITTED id consult janessa castro wound care needs wound vac rehab, snf placement History of Present Illness History of Present Illness Ms Ayala is a 44 yr old female w/ PMHx asthma, depression, HTN, DM2, diabetic polyneuropathy recently discharged from [facility] on daptomycin and Invanz and the patient comes in here that she says she just cannot do it at home and she wants to go to rehab. presented emergency department for bilateral foot wounds. discharged from [facility] on Friday. She had I&D of the left foot wound and amputation of the second and third digit on the right foot in January.2020 has a PICC line in the left upper extremity. reports they sent antibiotics to her house. She did not go to wound care as instructed They were supposed to put a wound VAC on the wounds Patient denies fever chills nausea vomiting chest pain shortness of breath new numbness or weakness. Patient denies smoking drug use or alcohol use 05/17 NEEDS PLACEMENT D/W RN AND CASE MGT 05/18 REPORTS PAIN UNCONTROLLED WILL ADJUST 05/22: Afebrile. Pain is not well controlled on 5 mg of oxycodone is asking if this could be increased. Especially debridement. She also notes that she was instructed to be nonweightbearing per vascular surgery on her previous hospital stay. Also has not been on her home dose of valproic acid. 05/23: Afebrile. Notes her pain is better controlled. She is concerned about having a wound VAC replaced talk to her about this being likely due to compliance issues previously she said she will be compliant once wound care come back though she removed her dressing and showered. D/w ID. Afebrile. She is dying her hair in the bathroom. Tolerating antibitoics and dressing changes well. plan for d/c later today on IV antibiotics. Vitals/I&O Vitals/I&O: Vital Signs Date Time Temp Pulse Resp B/P (MAP) Pulse Ox O2 Delivery O2 Flow Rate FiO2 05/24/20 08:19 87 132/76 3/17/21 07:10 98.0 18 95 Room Air 98.0 I & O 05/23/20 05/23/20 05/24/20 15:00 23:00 07:00 Intake Total 400 ml 200 ml Balance 400 ml 200 ml Physical Exam Physical Exam: GENERAL: Alert, oriented female, not in distress.On side of bed HEENT: Anicteric no thrush NECK: Supple, no JVP, no lymphadenopathy. LUNGS: Clear. HEART: S1, S2 regular. ABDOMEN: Obese soft bowel sounds present EXTREMITIES: No edema or cyanosis. SKIN: necrotic wound on the left plantar surface with Charcot's deformity and the right foot has an amputation site wound, which is actually healing nicely. Rest of skin exam is unremarkable. Dorsalis pedis is palpable. wound vac intact NEUROLOGIC: The patient is alert, awake and appropriate. No focal neurologic deficit. Left upper extreme PICC line clean General: Alert, Oriented X3, Cooperative, No acute distress Heart: Regular rate, Normal S1, Normal S2, No murmurs Lungs: Clear Abdomen: Normal bowel sounds, Soft, No tenderness Extremities: No clubbing, No cyanosis Labs Labs: Laboratory Tests Test 05/23/20 11:38 05/23/20 16:49 05/23/20 20:19 05/24/20 07:00 Glucose (Fingerstick) 112 mg/dL (70-99) 156 mg/dL (70-99) 275 mg/dL (70-99) 143 mg/dL (70-99) Assessment and Plan Assessmemt and Plan Problems Medical Problems: (1) TYPE 2 DIABETES MELLITUS WITH FOOT ULCER Status: Chronic (2) Wound of left foot Status: Acute (3) Wound of right foot Status: Acute Comment Review of Relevant I have reviewed the following items angela (where applicable) has been applied. Medications: Current Medications Medications (Trade) Dose Ordered Sig/Nalini Route PRN Reason Start Time Stop Time Status Last Admin Dose Admin Hydromorphone HCl (Dilaudid) 0.5 mg PRN Q4HRS PRN IVP BREAKTHRU PAIN 05/23/20 11:00 05/23/20 22:19 Multivitamins (Thera M Plus) 1 tab DAILY PO 05/23/20 18:00 05/24/20 08:19 Justifications for Admission Other Justification LIVE CONTRERAS MD May 24, 2020 08:46
--- NOTE | 2020-05-24 08:49 | PDOC ---
Infectious Disease Note Subjective: Subjective Patient without complaints Vaginitis symptoms improved after fluconazole Awaiting placement Vital Signs: Vital Signs Vital Signs Date Time Temp Pulse Resp B/P (MAP) Pulse Ox O2 Delivery O2 Flow Rate FiO2 05/24/20 08:19 87 132/76 05/24/20 07:10 98.0 18 95 Room Air 98.0 Physical Exam: PHYSICAL EXAM GENERAL: Alert, oriented female, not in distress.On side of bed HEENT: Anicteric no thrush NECK: Supple, no JVP, no lymphadenopathy. LUNGS: Clear. HEART: S1, S2 regular. ABDOMEN: Obese soft bowel sounds present EXTREMITIES: No edema or cyanosis. SKIN: necrotic wound on the left plantar surface with Charcot's deformity and the right foot has an amputation site wound, which is actually healing nicely. Rest of skin exam is unremarkable. Dorsalis pedis is palpable. wound vac intact NEUROLOGIC: The patient is alert, awake and appropriate. No focal neurologic deficit. Left upper extreme PICC line clean Medications: Inpatient Meds: Medications reviewed. Labs: Lab Laboratory Tests Test 05/23/20 11:38 05/23/20 16:49 05/23/20 20:19 05/24/20 07:00 Glucose (Fingerstick) 112 mg/dL (70-99) 156 mg/dL (70-99) 275 mg/dL (70-99) 143 mg/dL (70-99) Objective: Assessment: 1. Left foot necrotic plantar ulcer with abscess, status post recent I and D at [facility]. At that time, MRI was negative for osteomyelitis. 2. Right toe amputation site wound, which is healing well. Status post I&D healing well 3. Diabetes with poor control. 4. Diabetic neuropathy. 5. Charcot's disease in the foot. 6. 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 Friday labs CBC/BUN/creatinine/CPK/ESR/CRP. Fax results to [phone] Follow-up ID clinic in 2 -3 weeks, call [phone] for appointment Wound/VAC care as directed Discussed with nursing staff Discussed with KEYSHAWN Patrick MD May 24, 2020 08:49
[2020-05-24 09:02] LABS: ALBUMIN 2.5 g/dL (3.4-5.0); ALBUMIN/GLOBULIN RATIO 0.6 (1.0-1.7); CALCIUM 8.6 mg/dL (8.5-10.1); CREATININE 0.7 mg/dL (0.6-1.0); GFR 90.9; POTASSIUM 4.6 mmol/L (3.5-5.1); TOTAL BILIRUBIN 0.2 mg/dL (0.2-1.0); TOTAL PROTEIN 6.9 g/dL (6.4-8.2)
--- NOTE | 2020-05-24 09:55 | NUR ---
DANIEL following. Discussed with RN, pt from home alone, room air, ada diet. Pt accepted at [facility], awaiting discharge orders. DANIEL notified pt, pt had several questions about the discharge plan, DANIEL provided phone number of the facility to pt so she can talk with them about how things work over there, and in case she had more questions than what she had at this time. Pt appears to be upset about the news of transferring to a SNF. Discussed with RN. DANIEL will continue to follow. Addendum: 05/24/20 at 1226 by BROOKE SANCHEZ Discharge orders faxed to [facility], awaiting transportation time. RN notified. DANIEL will continue to follow. Addendum: 05/24/20 at 1446 by BROOKE SANCHEZ [facility] arranged transportation with [facility] for excelsior picker between [id number]. RN notified.
[2020-05-24] MEDS: ALPRAZolam 0.25 MG TABLET PO PRN (10:06)
[2020-05-24] MEDS: HYDROmorphone 2 MG/ML VIAL IVP PRN (10:09)
[2020-05-24 10:50] VITALS: BP 154/80
[2020-05-24] MEDS ORDERED: LACT1CAP19 PO (11:19)
[2020-05-24] MEDS ORDERED: INSU100V35 SQ (11:19)
[2020-05-24] MEDS ORDERED: OXYC1TAB19 PO (11:19)
[2020-05-24] MEDS ORDERED: PSYL3.4P PO (11:19)
[2020-05-24] MEDS ORDERED: PREG100C PO (11:19)
[2020-05-24] MEDS ORDERED: DAPT350V IV (12:04)
[2020-05-24] MEDS ORDERED: ERTA1VIA16 IJ (12:04)
--- NOTE | 2020-05-24 12:05 | SNU/HH DC ---
DISCHARGE ORDERS DISCHARGE INFORMATION: DISCHARGE DATE: May 24, 2020 FINAL DIAGNOSIS Problems Medical Problems: (1) TYPE 2 DIABETES MELLITUS WITH FOOT ULCER Status: Chronic (2) Wound of left foot Status: Acute (3) Wound of right foot Status: Acute CONDITION ON DISCHARGE: Stable CODE STATUS: Code Status: Full NURSING HOME: SNF STAY <30 DAYS: Yes POST DISCHARGE ORDERS: ACTIVITY ORDERS: Activity as tolerated WEIGHT BEARING STATUS: Partial weight bearing, Other, see below BATHING ORDERS: Shower-keep dressing dry, No Tub Bath until see DIET AFTER DISCHARGE: ADA WOUND/INCISION CARE: Keep wound/cast CDI, Change dressing OTHER WOUND INSTRUCTIONS: Place wound vac upon admission per [facility] Wound Care Clinic FOLLOW-UP: PHYSICIAN FOLLOW-UP: Dr. Casillas 3 weeks call [phone] to schedule ADDITIONAL FOLLOW-UP: [facility] vascular surgery 3 weeks LAB ORDERS FOR FOLLOW-UP: Weekly CBC/BUN/creatinine/ESR/CRP/CK Additional Instructions: Daily wound care. Heel touch weightbearing on right, nonweightbearing on plantar on the left leg, preferably knee scooter for left leg. Daptomycin 6 mg/kg daily for 4 weeks Invanz 1 g IV daily for 4 weeks Q. Friday CBC/BUN/creatinine/ESR/CRP/CPK Fax results to [phone] attention Dr. Casillas. TREATMENT/EQUIPMENT ORDERS: ADAPTIVE EQUIPMENT NEEDED: None (Knee scooter) INFUSION EQUIPMENT NEEDED: PICC Line Physical Therapy For: Evalulation/Treatment Occupational Therapy For: Evaluation/Treatment DISCHARGE MEDICATIONS: Home Meds Active Scripts Ertapenem Sodium (INVANZ) 1 Gm Vial, 1 GM IJ DAILY for Osteomyelitis for 30 Days, #30 EACH Prov:LIVE CONTRERAS MD 05/24/20 Daptomycin (Daptomycin) 350 Mg Vial, 744 MG IV DAILY for Osteomyelitis for 30 Days, #64 EACH Prov:LIVE CONTRERAS MD 05/24/20 Insulin Lispro (Admelog) 100 Unit/1 Ml Vial, 5 UNITS SQ TIDWMEALS for DM2 for 30 Days, #1 EACH Prov:LIVE CONTRERAS MD 05/24/20 Lactobacillus Rhamnosus Gg (CULTURELLE) 1 Each Cap.sprink, 1 CAP PO BID for Diarrhea for 30 Days, #60 CAP Prov:LIVE CONTRERAS MD 05/24/20 Psyllium Husk/Aspartame (METAMUCIL FIBER SINGLES PACKET) 3.4 Gm Powd.pack, 1 PKT PO QHS for Bowel regularity for 30 Days, #30 PKT Prov:LIVE CONTRERAS MD 05/24/20 Oxycodone/Apap 7.5-325 (PERCOCET 7.5-325 MG TABLET ) 1 Each Tablet, 1 TAB PO PRN Q6HRS PRN for MODERATE TO SEVERE PAIN for 6 Days, #24 TAB Prov:LIVE CONTRERAS MD 05/24/20 Pregabalin (LYRICA) 100 Mg Capsule, 1 CAP PO BID for Neuropathic pain for 30 Days, #60 CAP 2 Refills Prov:LIVE CONTRERAS MD 05/24/20 Reported Medications Valproic Acid (VALPROIC ACID) 250 Mg Capsule, 500 MG PO BID for seizures/b ipolar, CAP 05/22/20 Insulin Glargine,Hum.rec.anlog (LANTUS SOLOSTAR) 100 Unit/1 Ml Insuln.pen, 30 UNIT SQ HS, #15 ML 3 Refills 04/19/15 Metformin Hcl (METFORMIN HCL) 1,000 Mg Tablet, 1 TAB PO DAILY, #60 TAB 5 Refills 04/19/15 Folic Acid (FOLIC ACID) 0.4 Mg Tablet, 0.4 MG PO DAILY, TAB 04/19/15 Fluoxetine Hcl (FLUOXETINE HCL) 60 Mg Tablet, 60 MG PO DAILY, TAB 04/19/15 Lisinopril (LISINOPRIL) 40 Mg Tablet, 1 TAB PO DAILY, #30 TAB 5 Refills 04/19/15 Medroxyprogesterone Acetate (DEPO-PROVERA) 150 Mg/1 Ml Disp.syrin, 1 ML IM Q4WK, #1 SYR 4 Refills 04/19/15 Discontinued Reported Medications Insulin Aspart (NOVOLOG) 100 Unit/1 Ml Cartridge, 100 UNIT SQ TID, EACH 04/19/15 Discontinued Scripts Benzonatate (TESSALON PERLE) 100 Mg Capsule, 1 CAP PO TID, #30 CAP Prov:MUTRAMEZABARRY CASINO CASHIER 04/23/16 Clindamycin Hcl (CLINDAMYCIN HCL) 150 Mg Capsule, 3 CAP PO TID, #90 CAP Prov:BARRY DENTON CASINO CASHIER 04/23/16 Oxycodone/Apap 5-325 (PERCOCET 5-325 MG TABLET ) 1 Each Tablet, 1 TAB PO PRN Q6HRS PRN for PAIN, #20 TAB 0 Refills Prov:ARMEN HERNANDEZ 10/02/15 LIVE CONTRERAS MD May 24, 2020 12:05
--- NOTE | 2020-05-24 12:09 | PDOC3 ---
Discharge Summary Visit Information Date of Admission: May 15, 2020 Date of Discharge: May 24, 2020 Admitting Diagnosis: Bilateral diabetic foot ulcers Final Diagnosis Problems Medical Problems: (1) TYPE 2 DIABETES MELLITUS WITH FOOT ULCER Status: Chronic (2) Wound of left foot Status: Acute (3) Wound of right foot Status: Acute Brief Hospital Course Allergies Allergies Coded Allergies Type Severity Reaction Last Updated Verified bupropion Allergy Severe 05/15/20 Yes tioconazole Allergy Intermediate 04/19/15 No Vital Signs Vital Signs Date Time Temp Pulse Resp B/P (MAP) Pulse Ox O2 Delivery O2 Flow Rate FiO2 05/24/20 10:50 98.2 90 18 154/80 (104) 99 Room Air 98.2 Lab Results Laboratory Tests Test 05/22/20 16:05 05/22/20 20:40 05/23/20 07:35 05/23/20 11:38 Glucose (Fingerstick) 126 mg/dL (70-99) 176 mg/dL (70-99) 132 mg/dL (70-99) 112 mg/dL (70-99) Test 05/23/20 16:49 05/23/20 20:19 05/24/20 07:00 05/24/20 08:05 Glucose (Fingerstick) 156 mg/dL (70-99) 275 mg/dL (70-99) 143 mg/dL (70-99) White Blood Count 4.7 x10^3/uL (4.0-11.0) Red Blood Count 3.16 x10^6/uL (3.50-5.40) Hemoglobin 8.3 g/dL (12.0-15.5) Hematocrit 26.3 % (36.0-47.0) Mean Corpuscular Volume 83 fL (79-100) Mean Corpuscular Hemoglobin 26 pg (25-35) Mean Corpuscular Hemoglobin Concent 32 g/dL (31-37) Red Cell Distribution Width 18.3 % (11.5-14.5) Platelet Count 302 x10^3/uL (140-400) Neutrophils (%) (Auto) 37 % (31-73) Lymphocytes (%) (Auto) 50 % (24-48) Monocytes (%) (Auto) 8 % (0-9) Eosinophils (%) (Auto) 4 % (0-3) Basophils (%) (Auto) 1 % (0-3) Neutrophils # (Auto) 1.7 x10^3/uL (1.8-7.7) Lymphocytes # (Auto) 2.3 x10^3/uL (1.0-4.8) Monocytes # (Auto) 0.4 x10^3/uL (0.0-1.1) Eosinophils # (Auto) 0.2 x10^3/uL (0.0-0.7) Basophils # (Auto) 0.1 x10^3/uL (0.0-0.2) Sodium Level 140 mmol/L (136-145) Potassium Level 4.6 mmol/L (3.5-5.1) Chloride Level 106 mmol/L (98-107) Carbon Dioxide Level 23 mmol/L (21-32) Anion Gap 11 (6-14) Blood Urea Nitrogen 26 mg/dL (7-20) Creatinine 0.7 mg/dL (0.6-1.0) Estimated GFR (Cockcroft-Gault) 90.9 BUN/Creatinine Ratio 37 (6-20) Glucose Level 146 mg/dL (70-99) Calcium Level 8.6 mg/dL (8.5-10.1) Total Bilirubin 0.2 mg/dL (0.2-1.0) Aspartate Amino Transf (AST/SGOT) 19 U/L (15-37) Alanine Aminotransferase (ALT/SGPT) 21 U/L (14-59) Alkaline Phosphatase 94 U/L (46-116) Total Protein 6.9 g/dL (6.4-8.2) Albumin 2.5 g/dL (3.4-5.0) Albumin/Globulin Ratio 0.6 (1.0-1.7) Test 05/24/20 11:03 Glucose (Fingerstick) 117 mg/dL (70-99) Laboratory Tests Test 05/23/20 16:49 05/23/20 20:19 05/24/20 07:00 05/24/20 08:05 Glucose (Fingerstick) 156 mg/dL (70-99) 275 mg/dL (70-99) 143 mg/dL (70-99) White Blood Count 4.7 x10^3/uL (4.0-11.0) Red Blood Count 3.16 x10^6/uL (3.50-5.40) Hemoglobin 8.3 g/dL (12.0-15.5) Hematocrit 26.3 % (36.0-47.0) Mean Corpuscular Volume 83 fL (79-100) Mean Corpuscular Hemoglobin 26 pg (25-35) Mean Corpuscular Hemoglobin Concent 32 g/dL (31-37) Red Cell Distribution Width 18.3 % (11.5-14.5) Platelet Count 302 x10^3/uL (140-400) Neutrophils (%) (Auto) 37 % (31-73) Lymphocytes (%) (Auto) 50 % (24-48) Monocytes (%) (Auto) 8 % (0-9) Eosinophils (%) (Auto) 4 % (0-3) Basophils (%) (Auto) 1 % (0-3) Neutrophils # (Auto) 1.7 x10^3/uL (1.8-7.7) Lymphocytes # (Auto) 2.3 x10^3/uL (1.0-4.8) Monocytes # (Auto) 0.4 x10^3/uL (0.0-1.1) Eosinophils # (Auto) 0.2 x10^3/uL (0.0-0.7) Basophils # (Auto) 0.1 x10^3/uL (0.0-0.2) Sodium Level 140 mmol/L (136-145) Potassium Level 4.6 mmol/L (3.5-5.1) Chloride Level 106 mmol/L (98-107) Carbon Dioxide Level 23 mmol/L (21-32) Anion Gap 11 (6-14) Blood Urea Nitrogen 26 mg/dL (7-20) Creatinine 0.7 mg/dL (0.6-1.0) Estimated GFR (Cockcroft-Gault) 90.9 BUN/Creatinine Ratio 37 (6-20) Glucose Level 146 mg/dL (70-99) Calcium Level 8.6 mg/dL (8.5-10.1) Total Bilirubin 0.2 mg/dL (0.2-1.0) Aspartate Amino Transf (AST/SGOT) 19 U/L (15-37) Alanine Aminotransferase (ALT/SGPT) 21 U/L (14-59) Alkaline Phosphatase 94 U/L (46-116) Total Protein 6.9 g/dL (6.4-8.2) Albumin 2.5 g/dL (3.4-5.0) Albumin/Globulin Ratio 0.6 (1.0-1.7) Test 05/24/20 11:03 Glucose (Fingerstick) 117 mg/dL (70-99) Brief Hospital Course Ms Ayala is a 44 yr old female w/ PMHx asthma, depression, HTN, DM2, diabetic polyneuropathy recently discharged from [facility] on daptomycin and Invanz and the patient comes in here that she says she just cannot do it at home and she wants to go to rehab. presented emergency department for bilateral foot wounds. discharged from [facility] on Friday. She had I&D of the left foot wound and amputation of the second and third digit on the right foot in January.2020 has a PICC line in the left upper extremity. reports they sent antibiotics to her house. She did not go to wound care as instructed They were supposed to put a wound VAC on the wounds Patient denies fever chills nausea vomiting chest pain shortness of breath new numbness or weakness. Patient denies smoking drug use or alcohol use 05/17 NEEDS PLACEMENT D/W RN AND CASE MGT 05/18 REPORTS PAIN UNCONTROLLED WILL ADJUST 05/22: Afebrile. Pain is not well controlled on 5 mg of oxycodone is asking if this could be increased. Especially debridement. She also notes that she was instructed to be nonweightbearing per vascular surgery on her previous hospital stay. Also has not been on her home dose of valproic acid. 05/23: Afebrile. Notes her pain is better controlled. She is concerned about having a wound VAC replaced talk to her about this being likely due to compl iance issues previously she said she will be compliant once wound care come back though she removed her dressing and showered. D/w ID. Afebrile. She is dying her hair in the bathroom. Tolerating antibitoics and dressing changes well. plan for d/c later today on IV antibiotics. Discussed her mental health being important to recovery and working with her care team. Knee scooter or minimal weightbearing on the left given plantar ulceration can touch heel on left. Right foot heel touch can bear weight on the right foot. With ID follow-up in 3 weeks vascular surgery at [facility] as well. Daptomycin and Invanz for 4 weeks. PICC working well. Consults: ID, Wound care Problem list: Wound of left foot - s/p prior partial amputation MORBID OBESITY Wound of right foot - s/p prior amputation Asthma Diabetes Hypertension FAILED OUT PATIENT TREATMENT SEVERE PAIN Severe protein-caloric malnutrition Physical deconditioning Weakness Gait instability Mood disorder NOS Greater than 30 minutes spent on d/c to SNF Discharge Information Condition at Discharge: Improved Follow Up: Weeks (1) Disposition/Orders: D/C to Another Facility Scheduled Daptomycin (Daptomycin) 350 Mg Vial, 744 MG IV DAILY for Osteomyelitis for 30 Days, #64 Prescribed by: LIVE CONTRERAS MD on 05/24/20 1204 Ertapenem Sodium (Invanz) 1 Gm Vial, 1 GM IJ DAILY for Osteomyelitis for 30 Days, #30 Prescribed by: LIVE CONTRERAS MD on 05/24/20 1204 Fluoxetine Hcl (Fluoxetine Hcl) 60 Mg Tablet, 60 MG PO DAILY, (Reported) Entered as Reported by: KODY CANO on 04/19/15930 Last Action: Converted on 05/15/202315 by LUIS ALFREDO SCOTT RN Folic Acid (Folic Acid) 0.4 Mg Tablet, 0.4 MG PO DAILY, (Reported) Entered as Reported by: KODY CANO on 04/19/15930 Last Action: Converted on 05/16/201106 by ROBBI CISNEROS MD Insulin Glargine,Hum.rec.anlog (Lantus Solostar) 100 Unit/1 Ml Insuln.pen, 30 UNIT SQ HS, #15 Ref 3 (Reported) Entered as Reported by: KODY CANO on 04/19/15936 Last Action: Converted on 05/16/201106 by ROBBI CISNEROS MD Insulin Lispro (Admelog) 100 Unit/1 Ml Vial, 5 UNITS SQ TIDWMEALS for DM2 for 30 Days, #1 Prescribed by: LIVE CONTRERAS MD on 05/24/20 1119 Lactobacillus Rhamnosus Gg (Culturelle) 1 Each Cap.sprink, 1 CAP PO BID for Diarrhea for 30 Days, #60 Prescribed by: LIVE CONTRERAS MD on 05/24/20 1119 Lisinopril (Lisinopril) 40 Mg Tablet, 1 TAB PO DAILY, #30 Ref 5 (Reported) Entered as Reported by: KODY CANO on 04/19/15930 Last Action: Continued on 05/16/201106 by ROBBI CISNEROS MD Medroxyprogesterone Acetate (Depo-Provera) 150 Mg/1 Ml Disp.syrin, 1 ML IM Q4WK, #1 Ref 4 (Reported) Entered as Reported by: KODY CANO on 04/19/15930 Last Action: HELD on 05/16/201106 by ROBBI CISNEROS MD Metformin Hcl (Metformin Hcl) 1,000 Mg Tablet, 1 TAB PO DAILY, #60 Ref 5 (Reported) Entered as Reported by: KODY CANO on 04/19/15930 Last Action: Converted on 05/16/201106 by ROBBI CISNEROS MD Pregabalin (Lyrica) 100 Mg Capsule, 1 CAP PO BID for Neuropathic pain for 30 Days, #60 Ref 2 Prescribed by: LIVE CONTRERAS MD on 05/24/20 1119 Psyllium Husk/Aspartame (Metamucil Fiber Singles Packet) 3.4 Gm Powd.pack, 1 PKT PO QHS for Bowel regularity for 30 Days, #30 Prescribed by: LIVE CONTRERAS MD on 05/24/20 1119 Valproic Acid (Valproic Acid) 250 Mg Capsule, 500 MG PO BID for seizures/bipolar, (Reported) Entered as Reported by: ELVIN ATWOOD on 05/22/20 1130 Last Action: Continued on 05/22/20 1215 by LIVE CONTRERAS MD Scheduled PRN Oxycodone/Apap 7.5-325 (Percocet 7.5-325 Mg Tablet ) 1 Each Tablet, 1 TAB PO PRN Q6HRS PRN for MODERATE TO SEVERE PAIN for 6 Days, #24 Prescribed by: LIVE CONTRERAS MD on 05/24/20 1119 Discontinued Medications Benzonatate (Tessalon Perle) 100 Mg Capsule, 1 CAP PO TID, #30 Prescribed by: Adenike Zaragoza APRN on 04/23/16 1632 Last Action: Continued on 05/16/201106 by ROBBI CISNEROS MD Clindamycin Hcl (Clindamycin Hcl) 150 Mg Capsule, 3 CAP PO TID, #90 Prescribed by: Adenike Zaragoza APRN on 04/23/16 1631 Last Action: HELD on 05/16/201106 by ROBBI CISNEROS MD Insulin Aspart (Novolog) 100 Unit/1 Ml Cartridge, 100 UNIT SQ TID, (Reported) Entered as Reported by: KODY CANO on 04/19/15 0937 Last Action: HELD on 05/16/201106 by ROBBI CISNEROS MD Oxycodone/Apap 5-325 (Percocet 5-325 Mg Tablet ) 1 Each Tablet, 1 TAB PO PRN Q6HRS PRN for PAIN, #20 Ref 0 Prescribed by: CHARLEY LANGE on 10/02/15 1522 Last Action: Continued on 05/16/201106 by ROBBI CISNEROS MD Justicifation of Admission Dx: Justifications for Admission: Justification of Admission Dx: Yes Cellulitis: Cellulitis LIVE CONTRERAS MD May 24, 2020 12:09
[2020-05-24 14:22] VITALS: BP 145/73
[2020-05-24] MEDS: DAPTOmycin (GENERIC) IVPB 540 MG in IV NORMAL SALINE 50ML 50 ML IV SCH (15:31)
--- NOTE | 2020-05-24 17:44 | NUR ---
patient left around 1740 with transportation. Report was called to [facility] [place]Note 2[place] and Rehab previously around 1544 to [facility]. Paperwork given to transport with scripts. No concerns noted at discharge. PICC line still intact [place] [facility] [place]
== END 2020-05-24 17:49 | DRG 622 ==
LOC: ER 15:18 → 4 NORTH 18:30
PROVIDERS: ADMIT Internal Medicine; ATTEND Internal Medicine
PROC: 0JBR0ZZ Excision of Left Foot Subcutaneous Tissue and Fascia, Open Approach (ICD-10-PCS; principal; 2020-05-16)
DX: E11.621 Type 2 diabetes mellitus with foot ulcer (principal); E43 Unspecified severe protein-calorie malnutrition; Z68.41 Body mass index [BMI] 40.0-44.9, adult; Z20.822 Contact with and (suspected) exposure to COVID-19; E11.40 Type 2 diabetes mellitus with diabetic neuropathy, unspecified; E11.610 Type 2 diabetes mellitus with diabetic neuropathic arthropathy; Z88.8 Allergy status to other drugs, medicaments and biological substances; Z82.49 Family history of ischemic heart disease and other diseases of the circulatory system; Z83.3 Family history of diabetes mellitus; F17.210 Nicotine dependence, cigarettes, uncomplicated; F32.9 Major depressive disorder, single episode, unspecified; Z98.891 History of uterine scar from previous surgery; I10 Essential (primary) hypertension; E66.01 Morbid (severe) obesity due to excess calories; R26.89 Other abnormalities of gait and mobility; N76.0 Acute vaginitis; F39 Unspecified mood [affective] disorder
CPT/HCPCS: 36415; 80053; 82550; 82962; 85025; 86140; 96374; 96375; 99285; J0878; J1170; J1815; J2060; J2185; J2270; J2997; U0003; 73620-50; 97530-GP; 97535-GO; G0378